=== PATIENT | female | born 1970 | race African-American/Black ===

== ENCOUNTER 2017-06-20 00:14 | Inpatient (IN) | payer BC ==
[2017-06-20] MEDS ORDERED: NS 0.9% 1000 ML* 1,000 ML IV ONE (00:41)
[2017-06-20] MEDS ORDERED: Ondansetron INJ* 2 MG/ML VIAL IV ONE (00:41)
[2017-06-20] MEDS ORDERED: Ketorolac INJ* 30 MG/ML 1 ML VIAL IV PUSH ONE (00:42)
[2017-06-20 01:45] LABS: ABS Basophils 0.1 10^3/ul (0-0.2); ABS Eosinophils 0.1 10^3/ul (0-0.6); ABS Lymphocytes 2.6 10^3/ul (1.0-4.8); ABS Monocytes 1.5 10^3/ul (0-0.8); ABS Neutrophils 4.3 10^3/ul (1.5-7.7); ABS Nucleated RBC 0 10^3/ul; Eosinophil % 1.7 % (0-6); Hematocrit 42 % (35-47); Hemoglobin 14.1 g/dl (12.0-16.0); Lymphocyte % 30.3 % (25-47); Mean Corpuscular HGB Conc 34 g/dl (31-36); Mean Corpuscular Hemoglobin 29 pg (27-31); Mean Corpuscular Volume 86 fL (80-97); Mean Platelet Volume 8 um3 (7.4-10.4); Nucleated Red Blood Cells % 0; Platelet Count 209 10^3/ul (150-450); Red Blood Count 4.88 10^6/ul (4.0-5.4); Red Cell Distribution Width 17 % (10.5-15); White Blood Count 8.6 10^3/ul (3.5-10.8)
[2017-06-20 01:59] LABS: EGFR Non-African American 50.9 (>60)
[2017-06-20 02:51] LABS: Urine Appearance Cloudy; Urine Blood Negative (Negative); Urine Color Amber; Urine Ketones Negative (Negative); Urine Protein Negative (Negative); Urine Specific Gravity 1.019 (1.010-1.030); Urine Urobilinogen Positive (Negative)
[2017-06-20] MEDS ORDERED: Acetaminophen TAB* 325 MG PO PRN (03:49)
[2017-06-20] MEDS ORDERED: Al Hydrox/Mg Hydrox/Simet LIQ* 30 ML UDC PO PRN (03:49)
[2017-06-20] MEDS ORDERED: HYDROcodone/ACETAMIN 5-325 MG* 1 TAB PO PRN (03:52)
--- NOTE | 2017-06-20 05:06 | ED ---
Lary Branch Julia, scribed for Oswaldo Allen MD on 06/20/17 at 0313 . Abdominal Pain/Female - HPI Summary HPI Summary: This patient is a 47 year old F presenting to [facility] with a chief complaint of constant sharp R sided abdominal pain for the past 3 days. Patient reports R flank pain vomiting, mild nausea, and dark urine. Patient denies fever dysuria, CP, SOB, or trauma.The patient rates the pain 9/10 in severity. Symptoms aggravated by lying on right side. LNMP was 1 month ago. - History of Current Complaint Chief Complaint: EDFlankPain Stated Complaint: FLANK PAIN Time Seen by Provider: 06/20/17 01:26 Hx Obtained From: Patient Onset/Duration: Lasting Days Timing: Constant Pain Intensity: 8 Pain Scale Used: 0-10 Numeric Location: Discrete At: RUQ, Discrete At: RLQ, Flank - R Character: Sharp Aggravating Factor(s): Other: - lying on R side Associated Signs and Symptoms: Positive: Other: - R flank pain vomiting, mild nausea, and dark urine Allergies/Adverse Reactions: Allergies Allergy/AdvReac Type Severity Reaction Status Date / Time Gabapentin [From Neurontin] Allergy Hives Verified 06/20/17 00:21 PMH/Surg Hx/FS Hx/Imm Hx Endocrine/Hematology History: Denies: Hx Diabetes Cardiovascular History: Reports: Hx Hypertension Denies: Hx Congestive Heart Failure GI History: Denies: Other GI Disorders History: Denies: Hx Renal Disease, Other Problems/Disorders Musculoskeletal History: Reports: Other Musculoskeletal History - NECK SURGERY Sensory History: Reports: Hx Contacts or Glasses Opthamlomology History: Reports: Hx Contacts or Glasses - Surgical History Surgery Procedure, Year, and Place: NECK SURGERY 2002. [facility] I&D 2013, [facility] - Immunization History Date of Tetanus Vaccine: Unk Date of Influenza Vaccine: Fall 2011 Infectious Disease History: No Infectious Disease History: Denies: Traveled Outside the [place] in Last 30 Days - Family History Known Family History: Negative: Cardiac Disease, Diabetes - Social History Alcohol Use: Occasionally Hx Substance Use: No Substance Use Type: Reports: None Hx Tobacco Use: Yes Smoking Status (MU): Current Some Day Smoker Type: Cigarettes Review of Systems Negative: Fever Negative: Chest Pain Negative: Shortness Of Breath Positive: Abdominal Pain, Vomiting, Nausea Positive: other - dark urine. Negative: dysuria All Other Systems Reviewed And Are Negative: Yes Physical Exam - Summary Physical Exam Summary: Appearance: Well appearing, no pain distress Skin: warm, dry, reflects adequate perfusion Head/face: normal Eyes: EOMI, SALAS ENT: normal Neck: supple, non-tender Respiratory: CTA, breath sounds present Cardiovascular: RRR, pulses symmetrical Abdomen: pain with deep palpation in RUQ mild to moderate tenderness to RUQ, no CVA tenderness, negative murphys sign Bowel: present Musculoskeletal: normal, strength/ROM intact Neuro: normal, sensory motor intact, A&Ox3 Triage Information Reviewed: Yes Vital Signs On Initial Exam: Initial Vitals Temp Pulse Resp BP Pulse Ox 97.4 F 85 16 140/77 100 06/20/17 00:18 06/20/17 00:18 06/20/17 00:18 06/20/17 00:18 06/20/17 00:18 Vital Signs Reviewed: Yes Diagnostics - Vital Signs Vital Signs Temp Pulse Resp BP Pulse Ox 06/20/17 00:18 97.4 F 85 16 140/77 100 - Laboratory Lab Results: Lab Results 06/20/17 06/20/17 06/20/17 Range/Units 01:21 01:21 01:21 WBC 8.6 (3.5-10.8) 10^3/ul RBC 4.88 (4.0-5.4) 10^6/ul Hgb 14.1 (12.0-16.0) g/dl Hct 42 (35-47) % MCV 86 (80-97) fL MCH 29 (27-31) pg MCHC 34 (31-36) g/dl RDW 17 H (10.5-15) % Plt Count 209 (150-450) 10^3/ul MPV 8 (7.4-10.4) um3 Neut % (Auto) 49.3 (38-83) % Lymph % (Auto) 30.3 (25-47) % [place] % (Auto) 17.3 H (1-9) % Eos % (Auto) 1.7 (0-6) % Baso % (Auto) 1.4 (0-2) % Absolute Neuts (auto) 4.3 (1.5-7.7) 10^3/ul Absolute Lymphs (auto) 2.6 (1.0-4.8) 10^3/ul Absolute Monos (auto) 1.5 H (0-0.8) 10^3/ul Absolute Eos (auto) 0.1 (0-0.6) 10^3/ul Absolute Basos (auto) 0.1 (0-0.2) 10^3/ul Absolute Nucleated RBC 0 10^3/ul Nucleated RBC % 0 Sodium 139 (133-145) mmol/L Potassium 3.2 L (3.5-5.0) mmol/L Chloride 101 (101-111) mmol/L Carbon Dioxide 31 (22-32) mmol/L Anion Gap 7 (2-11) mmol/L BUN 15 (6-24) mg/dL Creatinine 1.14 H (0.51-0.95) mg/dL Est GFR ( Amer) 65.4 (>60) Est GFR (Non-Af Amer) 50.9 (>60) BUN/Creatinine Ratio 13.2 (8-20) Glucose 72 (70-100) mg/dL Lactic Acid 2.2 H* (0.5-2.0) mmol/L Calcium 9.6 (8.6-10.3) mg/dL Total Bilirubin 2.50 H (0.2-1.0) mg/dL AST 513 H (13-39) U/L ALT Pending Alkaline Phosphatase 121 H (34-104) U/L Total Protein 6.8 (6.4-8.9) g/dL Albumin 3.8 (3.2-5.2) g/dL Globulin 3.0 (2-4) g/dL Albumin/Globulin Ratio 1.3 (1-3) Lipase 57 (11.0-82.0) U/L Beta HCG, Quant 1.84 mIU/mL Urine Color Urine Appearance Urine pH (5-9) Ur Specific Ava (1.010-1.030) Urine Protein (Negative) Urine Ketones (Negative) Urine Blood (Negative) Urine Nitrate (Negative) Urine Bilirubin (Negative) Urine Urobilinogen (Negative) Ur Leukocyte Esterase (Negative) Urine Glucose (Negative) 06/20/17 Range/Units 02:00 WBC (3.5-10.8) 10^3/ul RBC (4.0-5.4) 10^6/ul Hgb (12.0-16.0) g/dl Hct (35-47) % MCV (80-97) fL MCH (27-31) pg MCHC (31-36) g/dl RDW (10.5-15) % Plt Count (150-450) 10^3/ul MPV (7.4-10.4) um3 Neut % (Auto) (38-83) % Lymph % (Auto) (25-47) % [place] % (Auto) (1-9) % Eos % (Auto) (0-6) % Baso % (Auto) (0-2) % Absolute Neuts (auto) (1.5-7.7) 10^3/ul Absolute Lymphs (auto) (1.0-4.8) 10^3/ul Absolute Monos (auto) (0-0.8) 10^3/ul Absolute Eos (auto) (0-0.6) 10^3/ul Absolute Basos (auto) (0-0.2) 10^3/ul Absolute Nucleated RBC 10^3/ul Nucleated RBC % Sodium (133-145) mmol/L Potassium (3.5-5.0) mmol/L Chloride (101-111) mmol/L Carbon Dioxide (22-32) mmol/L Anion Gap (2-11) mmol/L BUN (6-24) mg/dL Creatinine (0.51-0.95) mg/dL Est GFR ( Amer) (>60) Est GFR (Non-Af Amer) (>60) BUN/Creatinine Ratio (8-20) Glucose (70-100) mg/dL Lactic Acid (0.5-2.0) mmol/L Calcium (8.6-10.3) mg/dL Total Bilirubin (0.2-1.0) mg/dL AST (13-39) U/L ALT Alkaline Phosphatase (34-104) U/L Total Protein (6.4-8.9) g/dL Albumin (3.2-5.2) g/dL Globulin (2-4) g/dL Albumin/Globulin Ratio (1-3) Lipase (11.0-82.0) U/L Beta HCG, Quant mIU/mL Urine Color Shayy Urine Appearance Cloudy Urine pH 7.0 (5-9) Ur Specific Ava 1.019 (1.010-1.030) Urine Protein Negative (Negative) Urine Ketones Negative (Negative) Urine Blood Negative (Negative) Urine Nitrate Negative (Negative) Urine Bilirubin Negative (Negative) Urine Urobilinogen Positive H (Negative) Ur Leukocyte Esterase Negative (Negative) Urine Glucose Negative (Negative) Result Diagrams: 06/20/17 01:21 06/20/17 01:21 Lab Statement: Any lab studies that have been ordered have been reviewed, and results considered in the medical decision making process. - CT A/P CT Interpretation Completed By: Radiologist - No definite evidence of acute pathology. Moderate amount of diffuse solid stool. ED Physician has reviewed this report. Re-Evaluation - Re-Evaluation 1 Re-Evaluation Time: 03:11 Change: Improved - pain improved Abdominal Pain Fem Course/Dx - Course Course Of Treatment: Pt presents with constant sharp R sided abdominal pain for the past 3 days. Patient reports R flank pain vomiting, mild nausea, and dark urine. Labs reveal lactic acid of 2.2. UA is present of Urobilinogen. Pt given zofran, potassium, Senna, Toradol, acetaminophen, Heparin, morphine, and IV fluids. Pt will be admitted to Dr. Mcneill, hospitalist for elevated LFTs, possible choledocolithiasis. No hx of Hep B/C. US not available for GB currently , obtain in am. - Diagnoses Provider Diagnoses: Acute hepatitis, RUQ pain, Choledocholithiasis - Provider Notifications Instructed by Provider To: Other - At 3:12 Dr. Mcneill, hospitalist, agrees to admission and will come visit pt. Discharge - Discharge Plan Condition: Good Disposition: ADMITTED TO [facility] documentation as recorded by the Lary roberto Julia accurately reflects the service I personally performed and the decisions made by , Oswaldo Allen MD.
[2017-06-20] MEDS: Morphine INJ* 2 MG/ML 1 ML SYRINGE (TWO MG - NEW SYRINGE VERSION) IV PRN ×4 (05:44→12:21)
[2017-06-20] MEDS: Heparin VIAL(*) 5000 UNITS/ML VIAL (FIVE THOUSAND) SUBCUT SCH ×3 (05:45→22:42)
[2017-06-20] MEDS: Ondansetron INJ* 2 MG/ML VIAL IV PRN ×4 (05:52→21:32)
[2017-06-20] MEDS: NS 0.9% w/ 20 Meq KCL 1000 ML* 1,000 ML IV SCH ×2 (05:52→15:34)
--- NOTE | 2017-06-20 07:48 | RAD ---
CLINICAL HISTORY: Right flank pain COMPARISON: November 28, 2015 TECHNIQUE: Multiple contiguous axial CT scans were obtained of the abdomen and pelvis, without intravenous contrast enhancement. Coronal and sagittal multiplanar reformations are submitted for review. Oral contrast was not administered. FINDINGS: The study is limited by the lack of intravenous contrast. This limits evaluation of the solid organs and vasculature. LUNG BASES: The lung bases are clear. LIVER: The liver is normal in shape, size, contour, and attenuation. BILE DUCTS: There is no intrahepatic or extrahepatic biliary dilatation. GALLBLADDER: The gallbladder is collapsed and is not well evaluated. PANCREAS: The pancreas is normal, without mass or ductal dilatation. SPLEEN: Normal in size and appearance. UPPER GI TRACT: Evaluation of the gastrointestinal tract is limited by incomplete gastric distention. The upper GI tract is unremarkable. SMALL BOWEL AND MESENTERY: The small bowel is normal in contour, course, and caliber. There is no obstruction or dilatation. COLON: The colon is normal in contour, course, caliber. There is no pericolonic inflammatory change. There is a tubular, vermiform, hollow viscus that is blind ending, and originates from the cecum, consistent with a normal appendix. There is no periappendiceal inflammatory change. This is best seen on axial images 108 through 119. ADRENALS: Normal bilaterally. KIDNEYS: The kidneys are normal in shape, size, contour, and axis. There is no hydronephrosis or nephrolithiasis. BLADDER: The bladder is collapsed and is not well evaluated. PELVIC ORGANS: The uterus and adnexa are grossly normal for technique. AORTA: The aorta is normal. IVC: Unremarkable LYMPH NODES: There is no lymphadenopathy by size criteria. ABDOMINAL WALL: There is diastasis recti.. BONES AND SOFT TISSUES: Unremarkable OTHER: None IMPRESSION: NO ACUTE NONCONTRAST CT PATHOLOGY OF THE VISUALIZED ABDOMEN OR PELVIS.
[2017-06-20 08:08] LABS: ABS Basophils 0.1 10^3/ul (0-0.2); ABS Eosinophils 0.2 10^3/ul (0-0.6); ABS Monocytes 1.2 10^3/ul (0-0.8); ABS Neutrophils 4.3 10^3/ul (1.5-7.7); ABS Nucleated RBC 0 10^3/ul; Eosinophil % 2.1 % (0-6); Hematocrit 38 % (35-47); Hemoglobin 12.7 g/dl (12.0-16.0); Lymphocyte % 33.9 % (25-47); Mean Corpuscular HGB Conc 33 g/dl (31-36); Mean Corpuscular Hemoglobin 28 pg (27-31); Mean Corpuscular Volume 85 fL (80-97); Mean Platelet Volume 9 um3 (7.4-10.4); Nucleated Red Blood Cells % 0.2; Platelet Count 184 10^3/ul (150-450); Red Blood Count 4.48 10^6/ul (4.0-5.4); Red Cell Distribution Width 17 % (10.5-15); White Blood Count 8.8 10^3/ul (3.5-10.8)
[2017-06-20 08:21] LABS: EGFR Non-African American 56.6 (>60)
--- NOTE | 2017-06-20 09:27 | RAD ---
INDICATION: Right-sided abdominal pain evaluate for gallbladder disease. COMPARISON: Comparison is made with a prior CT of the abdomen and pelvis of the same day. TECHNIQUE: Multiple real-time images of the right upper quadrant were obtained. FINDINGS: The gallbladder appear normal. No gallbladder wall thickening or pericholecystic fluid is present. No intra or extrahepatic ductal distention is present. The common bile duct measured 0.4 cm in diameter. The liver is normal in size without significant focal abnormality. The pancreas is partially obscured by overlying bowel gas. No pancreatic ductal distention is present. The right kidney is normal in size without evidence for hydronephrosis. IMPRESSION: NEGATIVE EXAM.
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
[2017-06-20] MEDS: Citalopram TAB* 20 MG PO SCH (10:38)
[2017-06-20] MEDS ORDERED: Ketorolac INJ* 30 MG/ML 1 ML VIAL ONE (16:45)
--- NOTE | 2017-06-20 17:11 | PN ---
Subjective Date of Service: 06/20/17 Interval History: Patient complains of continued pain on her right side and radiating to her flank. Patient states she has continued mild intermittent nausea accompanying the pain. Patient has not had any urine since 0500 this AM. Patient denies the need to urinate. Patient has not had a bowel movement today and denies the need. Patient denies any changes in her medications or food. Patient denies any recent travel. Patient denies taking tylenol in months. Patient states that this feels nothing like her previous psoas abscess. Patient denies ever having pain like this before. Patient denies F/C, CP, SOB, kidney stones, STONE, Dizziness , or other pain. Family History: Unchanged from Admission Social History: Unchanged from Admission Past Medical History: Unchanged from Admission Objective Active Medications: Al Hydrox/Mg Hydrox/Simethicone (Maalox Plus*) 30 ml PO Q6H PRN PRN Reason: INDIGESTION Citalopram Hydrobromide (Celexa Tab*) 20 mg PO DAILY [facility] Last Admin: 06/20/17 10:38 Dose: 20 mg Docusate Sodium (Colace Cap*) 100 mg PO BID PRN PRN Reason: CONSTIPATION Heparin Sodium (Porcine) (Heparin Vial(*)) 5,000 units SUBCUT Q8HR [facility] Last Admin: 06/20/17 13:21 Dose: 5,000 units Potassium Chloride/Sodium Chloride (Ns 0.9% W/ 20 Meq Kcl 1000 Ml*) 1,000 mls @ 125 mls/hr IV PER RATE [facility] Last Admin: 06/20/17 15:34 Dose: 125 mls/hr Lactated Ringer's (Lactated Ringers 1000 Ml Bag*) 1,000 mls @ 1,000 mls/hr IV .BOLUS [facility] Last Admin: 06/20/17 16:51 Dose: 1,000 mls/hr Ketorolac Tromethamine (Toradol Inj*) 30 mg IV PUSH Q6H PRN PRN Reason: PAIN Morphine Sulfate (Morphine Inj (Syringe)*) 4 mg IV Q4H PRN PRN Reason: PAIN - MILD Ondansetron HCl (Zofran Inj*) 4 mg IV Q4H PRN PRN Reason: NAUSEA/VOMITING Last Admin: 06/20/17 13:21 Dose: 4 mg Senna (Senokot Tab*) 1 tab PO BID PRN PRN Reason: CONSTIPATION Vital Signs - 8 hr 06/20/17 06/20/17 06/20/17 09:20 10:45 11:31 Temperature 97.8 F Pulse Rate 87 Respiratory 20 20 12 Rate Blood Pressure 101/62 (mmHg) O2 Sat by Pulse 98 Oximetry 06/20/17 06/20/17 06/20/17 12:21 15:18 15:29 Temperature 97.2 F Pulse Rate 90 Respiratory 20 16 18 Rate Blood Pressure 138/64 (mmHg) O2 Sat by Pulse 97 Oximetry Oxygen Devices in Use Now: None Appearance: Patient is a 47yo female female who appears stated age and is sitting in the bed in [facility]. Eyes: No Scleral Icterus, PERRLA Ears/Nose/Mouth/Throat: NL Teeth, Lips, Gums, Clear Oropharnyx, Mucous Membranes Moist Neck: NL Appearance and Movements; NL JVP, Trachea Midline Respiratory: Symmetrical Chest Expansion and Respiratory Effort, Clear to Auscultation Cardiovascular: NL Sounds; No Murmurs; No JVD, RRR, No Edema Abdominal: No Hepatosplenomegaly, - - Tenderness to palpation over RUQ,RLQ and flank. Negative Esquivel's Sign. BS present and normoactive in all 4 quadrants. No CVA tenderness Lymphatic: No Cervical Adenopathy Extremities: No Edema, No Clubbing, Cyanosis Skin: No Rash or Ulcers, No Nodules or Sclerosis Neurological: Alert and Oriented x 3, NL Sensation, NL Muscle Strength and Tone , - - CN II-XII intact Result Diagrams: 06/20/17 07:26 06/20/17 07:26 Additional Lab and Data: Lab Results Assess/Plan/Problems-Billing Assessment: Patient is a 47yo female with a PMH significant for HTN, Depression, and psoas abscess who presents with abdominal pain, N/V and several episodes of diarrhea who is still in significant pain despite negative imaging. - Patient Problems (1) Transaminitis Current Visit: Yes Status: Acute Code(s): R74.0 - NONSPEC ELEV OF LEVELS OF TRANSAMNS & LACTIC ACID DEHYDRGNSE SNOMED Code(s): 563434689 Comment: Patient had signficantly elevated transaminases as well as bilirubin and alkaline phosphotase. Appreciate GI input. No sign of stone on CT or US. Will order MRCP and tests for autoimmune hepatitis. Will trend LFTs. No signs of cholangitis, no indication for antibiotics. (2) Abdominal pain Current Visit: Yes Status: Acute Code(s): R10.9 - UNSPECIFIED ABDOMINAL PAIN SNOMED Code(s): 55655890 Comment: Abdominal pain persisting despite no signs of stone on US. Toradol and Morphine available PRN. (3) Psoas abscess Current Visit: Yes Status: Acute Code(s): K68.12 - PSOAS MUSCLE ABSCESS SNOMED Code(s): 212838857 Comment: History of psoas abscess. No provoking factor at that time. This is not similar in presentation per patient. (4) Hypertension Current Visit: Yes Status: Acute Code(s): I10 - ESSENTIAL (PRIMARY) HYPERTENSION SNOMED Code(s): 30183222 Comment: Normotensive. Hold HCTZ and continue fluids as patient has been dehydrated. (5) Depression Current Visit: Yes Status: Acute Code(s): F32.9 - MAJOR DEPRESSIVE DISORDER , SINGLE EPISODE, UNSPECIFIED SNOMED Code(s): 73946639 Comment: Continue citalopram. (6) Oliguria Current Visit: Yes Status: Acute Code(s): R34 - ANURIA AND OLIGURIA SNOMED Code(s): 15370459 Comment: Patient has not urinated since 0500 today. Will order bolus and continue fluids. Bladder scan shows only 75ml. Will order renal U/S to assess for hydronephrosis or kidney stones. (7) DVT prophylaxis Current Visit: Yes Status: Acute Code(s): CGE2483 - SNOMED Code(s): 338321633 Comment: Heparin SubQ. (8) Full code status Current Visit: Yes Status: Acute Code(s): Z78.9 - OTHER SPECIFIED HEALTH STATUS SNOMED Code(s): 023082467 Status and Disposition: Patient is admitted inpatient. Will discharge when medically able.
[2017-06-20] MEDS: Morphine INJ* 4 MG/ML 1 ML CARPUJECT IV PRN (18:47)
--- NOTE | 2017-06-20 18:48 | RAD ---
Indication: Oliguria. Real-time sonography of the kidneys and urinary bladder was performed. The right kidney measures 9.2 x 4.9 x 5.1 cm. Left kidney measures 9.8 x 5.5 x 4.3 cm. No hydronephrosis is noted. The urinary bladder demonstrates no significant post void residual. Postvoid residual is 38 mL. Bladder wall measures 1.9 mm. No bladder wall masses are noted. Bilateral ureteral jets are present. IMPRESSION: No hydronephrosis is noted. Minimal post void residual.
--- NOTE | 2017-06-20 20:50 | RAD ---
Indication: Evaluate for choledocholithiasis. Axial T2, coronal T2, 3-D MRCP images were obtained. The common bile duct, common hepatic duct shows no evidence of filling defect to suggest calculi. No intrahepatic duct dilatation is noted. The pancreatic duct is otherwise unremarkable. Left and right hepatic ducts are unremarkable. The liver is otherwise unremarkable. Motion artifact does degrades images. IMPRESSION: No evidence of filling defect is noted within the common bile duct or common hepatic duct. No intrahepatic ductal dilatation is noted.
[2017-06-20] MEDS ORDERED: Morphine INJ* 4 MG/ML 1 ML CARPUJECT IV ONE (21:15)
[2017-06-20] MEDS: Ketorolac INJ* 30 MG/ML 1 ML VIAL IV PUSH PRN (21:24)
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
[2017-06-21] MEDS ORDERED: NS 0.9% 500 ML* 500 ML IV ONE (01:19)
[2017-06-21] MEDS ORDERED: oxyCODONE TAB* 5 MG TAB PO ONE (01:20)
[2017-06-21] MEDS ORDERED: oxyCODONE TAB* 5 MG TAB ONE (01:24)
[2017-06-21] MEDS: NS 0.9% w/ 20 Meq KCL 1000 ML* 1,000 ML IV SCH ×3 (01:28→21:38)
[2017-06-21] MEDS: Ketorolac INJ* 30 MG/ML 1 ML VIAL IV PUSH PRN ×3 (04:26→16:36)
[2017-06-21] MEDS: Heparin VIAL(*) 5000 UNITS/ML VIAL (FIVE THOUSAND) SUBCUT SCH ×3 (06:15→22:46)
[2017-06-21 06:16] LABS: ABS Basophils 0.1 10^3/ul (0-0.2); ABS Eosinophils 0.3 10^3/ul (0-0.6); ABS Lymphocytes 2.4 10^3/ul (1.0-4.8); ABS Monocytes 0.8 10^3/ul (0-0.8); ABS Neutrophils 2.7 10^3/ul (1.5-7.7); ABS Nucleated RBC 0 10^3/ul; Eosinophil % 4.9 % (0-6); Hematocrit 36 % (35-47); Hemoglobin 11.8 g/dl (12.0-16.0); Lymphocyte % 38.7 % (25-47); Mean Corpuscular HGB Conc 33 g/dl (31-36); Mean Corpuscular Hemoglobin 29 pg (27-31); Mean Corpuscular Volume 86 fL (80-97); Mean Platelet Volume 8 um3 (7.4-10.4); Nucleated Red Blood Cells % 0.1; Platelet Count 160 10^3/ul (150-450); Red Blood Count 4.15 10^6/ul (4.0-5.4); Red Cell Distribution Width 17 % (10.5-15); White Blood Count 6.2 10^3/ul (3.5-10.8)
[2017-06-21 06:32] LABS: INR 1.25 (0.77-1.02)
[2017-06-21 06:47] LABS: EGFR Non-African American 66.8 (>60)
[2017-06-21] MEDS ORDERED: Magnesium Sulfate 2 GM IV* 2 GM/50 ML BAG IVPB ONE (06:53)
[2017-06-21] MEDS: Morphine INJ* 4 MG/ML 1 ML CARPUJECT IV PRN ×3 (08:30→21:51)
[2017-06-21] MEDS: Ondansetron INJ* 2 MG/ML VIAL IV PRN ×3 (08:30→21:51)
--- NOTE | 2017-06-21 12:33 | RAD ---
Indication: Elevated liver enzymes. Clinical concern for potential Budd-Chiari syndrome. Comparison: June 20, 2017 MR cholangiogram, RIGHT upper quadrant ultrasound, CT abdomen and pelvis. Technique: Ultrasound with Doppler of the portal vein, hepatic artery, hepatic veins, splenic vein. Report: Patent portal and hepatic veins with respective appropriate direction blood flow and waveforms. Patent hepatic artery with appropriate arterial waveform. Patent splenic vein with appropriate direction of flow and waveforms. IMPRESSION: No evidence for hepatic vein occlusion. Negative exam.
[2017-06-21] MEDS: Citalopram TAB* 20 MG PO SCH (14:37)
--- NOTE | 2017-06-21 15:02 | PN ---
Subjective Date of Service: 06/21/17 Interval History: Patient complains of continued pain, Nausea, and Vomiting. Patient states this is slightly improved from yesterday. Patient denies having a BM today and is having continued small amounts of dark urine without dysuria. Patient denies F/C , CP, SOB, Dizziness, Changes in vision, or other pain. Family History: Unchanged from Admission Social History: Unchanged from Admission Past Medical History: Unchanged from Admission Objective Active Medications: Al Hydrox/Mg Hydrox/Simethicone (Maalox Plus*) 30 ml PO Q6H PRN PRN Reason: INDIGESTION Citalopram Hydrobromide (Celexa Tab*) 20 mg PO DAILY [facility] Last Admin: 06/21/17 14:37 Dose: 20 mg Docusate Sodium (Colace Cap*) 100 mg PO BID PRN PRN Reason: CONSTIPATION Heparin Sodium (Porcine) (Heparin Vial(*)) 5,000 units SUBCUT Q8HR [facility] Last Admin: 06/21/17 14:34 Dose: 5,000 units Potassium Chloride/Sodium Chloride (Ns 0.9% W/ 20 Meq Kcl 1000 Ml*) 1,000 mls @ 125 mls/hr IV PER RATE [facility] Last Admin: 06/21/17 12:05 Dose: 125 mls/hr Lactated Ringer's (Lactated Ringers 1000 Ml Bag*) 1,000 mls @ 1,000 mls/hr IV .BOLUS [facility] Last Admin: 06/20/17 16:51 Dose: 1,000 mls/hr Ketorolac Tromethamine (Toradol Inj*) 30 mg IV PUSH Q6H PRN PRN Reason: PAIN Last Admin: 06/21/17 10:29 Dose: 30 mg Morphine Sulfate (Morphine Inj (Syringe)*) 4 mg IV Q4H PRN PRN Reason: PAIN - MILD Last Admin: 06/21/17 14:32 Dose: 4 mg Ondansetron HCl (Zofran Inj*) 4 mg IV Q4H PRN PRN Reason: NAUSEA/VOMITING Last Admin: 06/21/17 14:30 Dose: 4 mg Senna (Senokot Tab*) 1 tab PO BID PRN PRN Reason: CONSTIPATION Vital Signs - 8 hr 06/21/17 06/21/17 06/21/17 07:24 08:00 08:30 Temperature 98.8 F Pulse Rate 86 Respiratory 16 16 16 Rate Blood Pressure 104/64 (mmHg) O2 Sat by Pulse 96 Oximetry 06/21/17 06/21/17 06/21/17 09:55 11:06 14:32 Temperature 97.5 F Pulse Rate 81 Respiratory 16 16 16 Rate Blood Pressure 98/60 (mmHg) O2 Sat by Pulse 95 Oximetry Oxygen Devices in Use Now: None Appearance: Patient is a 47yo female who appears stated age and is sitting in the bed in moderate distress from abdominal pain. Eyes: No Scleral Icterus, PERRLA Ears/Nose/Mouth/Throat: NL Teeth, Lips, Gums, Clear Oropharnyx, Mucous Membranes Moist, - - Parotid gland swelling without tenderness. Neck: NL Appearance and Movements; NL JVP, Trachea Midline Respiratory: Symmetrical Chest Expansion and Respiratory Effort, Clear to Auscultation Cardiovascular: NL Sounds; No Murmurs; No JVD, RRR, No Edema Abdominal: No Hepatosplenomegaly, - - Normoactive bowel sounds present in all 4 quadrants. Tenderness to palpation over right flank and RUQ and RLQ. No guarding or rigidity. Lymphatic: No Cervical Adenopathy Extremities: No Edema, No Clubbing, Cyanosis Skin: No Rash or Ulcers, No Nodules or Sclerosis Neurological: Alert and Oriented x 3, NL Sensation, NL Muscle Strength and Tone Result Diagrams: 06/21/17 05:53 06/21/17 05:53 Additional Lab and Data: Lab Results Assess/Plan/Problems-Billing Assessment: Patient is a 47yo female with a PMH significant for HTN, Depression, and psoas abscess who presents with abdominal pain, N/V and several episodes of diarrhea who is still in significant pain despite negative imaging. - Patient Problems (1) Transaminitis Current Visit: Yes Status: Acute Code(s): R74.0 - NONSPEC ELEV OF LEVELS OF TRANSAMNS & LACTIC ACID DEHYDRGNSE SNOMED Code(s): 587086246 Comment: Patient had signficantly elevated transaminases as well as bilirubin and alkaline phosphotase. Trending down except bilirubin. Appreciate GI input. No sign of stone on CT or US. MRCP unremarkable. Tests for autoimmune hepatitis Pending. Bilirubin increasing. Both indirect and direct elevated, direct moreso. LDH and haptoglobin ordered.. No signs of cholangitis, no indication for antibiotics. (2) Abdominal pain Current Visit: Yes Status: Acute Code(s): R10.9 - UNSPECIFIED ABDOMINAL PAIN SNOMED Code(s): 13406892 Comment: Abdominal pain persisting despite no signs of stone on US. Toradol and Morphine available PRN. Decreasing slightly. (3) Psoas abscess Current Visit: Yes Status: Acute Code(s): K68.12 - PSOAS MUSCLE ABSCESS SNOMED Code(s): 479810413 Comment: History of psoas abscess. No provoking factor at that time. This is not similar in presentation per patient. (4) Hypertension Current Visit: Yes Status: Acute Code(s): I10 - ESSENTIAL (PRIMARY) HYPERTENSION SNOMED Code(s): 70544298 Comment: Borderline hypotensive. Hold HCTZ and continue fluids as patient has been dehydrated. (5) Depression Current Visit: Yes Status: Acute Code(s): F32.9 - MAJOR DEPRESSIVE DISORDER , SINGLE EPISODE, UNSPECIFIED SNOMED Code(s): 73814506 Comment: Continue citalopram. (6) Oliguria Current Visit: Yes Status: Acute Code(s): R34 - ANURIA AND OLIGURIA SNOMED Code(s): 45900455 Comment: Continued low UOP. Cret now WNL. Continue fluids. No signs of cardiac overload. Will order FeNa. (7) Parotid gland enlargement Current Visit: Yes Status: Acute Code(s): K11.1 - HYPERTROPHY OF SALIVARY GLAND SNOMED Code(s): 56504841 Comment: Patient states that her parotid glands are intermittently swollen but that this is the worst they have been. Patient does not complain of chronic dry mouth or dry eyes. Patient has documented immunity to mumps. (8) DVT prophylaxis Current Visit: Yes Status: Acute Code(s): SUX3922 - SNOMED Code(s): 549312327 Comment: Heparin SubQ. (9) Full code status Current Visit: Yes Status: Acute Code(s): Z78.9 - OTHER SPECIFIED HEALTH STATUS SNOMED Code(s): 679128813 Status and Disposition: Patient is admitted inpatient. Will discharge when medically able.
[2017-06-21] MEDS ORDERED: NS 0.9% 1000 ML* 1,000 ML IV ONE (15:08)
--- NOTE | 2017-06-21 15:52 | RAD ---
HISTORY: Abdominal pain COMPARISONS: CT dated June 20, 2017 VIEWS: Frontal supine and upright views of the abdomen. FINDINGS: BOWEL: There is a nonobstructive bowel gas pattern. There is a large amount of stool within the colon. CALCULI: There are no abnormal calculi. BONES AND SOFT TISSUES: Degenerative changes are noted at L5-S1. OTHER FINDINGS: The lung bases are clear. There is no subphrenic gas. IMPRESSION: NONOBSTRUCTIVE BOWEL GAS PATTERN. LARGE AMOUNT OF STOOL WITHIN THE COLON.
--- NOTE | 2017-06-21 20:36 | PN ---
Progress Note - Progress Note Date of Service: 06/21/17 - Gastroenterology Note: Patient seen and examined. Able to tolerate small amounts of liquids. Pain only slightly better. No fevers. +Chills. Some nausea. No emesis. Urine is still dark brown. Continued right flank pain. Vital Signs: Temp Pulse Resp BP Pulse Ox 98.1 F 82 16 114/70 98 06/21/17 19:21 06/21/17 19:21 06/21/17 19:33 06/21/17 19:21 06/21/17 19:21 GENERAL: NAD. Granddaughter at bedside. HEENT: MMM, Anicteric sclera B/L. B/L parotid gland swelling. CV: RRR. PULM: CTAB. ABDOMEN: Soft, less ttp throughout abdomen, decreased BS in all 4 quadrants, no r/g/r. EXTREMITIES: +B/L LE edema. Laboratory Last Values WBC 6.2 10^3/ul (3.5-10.8) 06/21/17 05:53 RBC 4.15 10^6/ul (4.0-5.4) 06/21/17 05:53 Hgb 11.8 g/dl (12.0-16.0) L 06/21/17 05:53 Hct 36 % (35-47) 06/21/17 05:53 MCV 86 fL (80-97) 06/21/17 05:53 MCH 29 pg (27-31) 06/21/17 05:53 MCHC 33 g/dl (31-36) 06/21/17 05:53 RDW 17 % (10.5-15) H 06/21/17 05:53 Plt Count 160 10^3/ul (150-450) 06/21/17 05:53 MPV 8 um3 (7.4-10.4) 06/21/17 05:53 Neut % (Auto) 42.9 % (38-83) 06/21/17 05:53 Lymph % (Auto) 38.7 % (25-47) 06/21/17 05:53 [place] % (Auto) 12.2 % (1-9) H 06/21/17 05:53 Eos % (Auto) 4.9 % (0-6) 06/21/17 05:53 Baso % (Auto) 1.3 % (0-2) 06/21/17 05:53 Absolute Neuts (auto) 2.7 10^3/ul (1.5-7.7) 06/21/17 05:53 Absolute Lymphs (auto) 2.4 10^3/ul (1.0-4.8) 06/21/17 05:53 Absolute Monos (auto) 0.8 10^3/ul (0-0.8) 06/21/17 05:53 Absolute Eos (auto) 0.3 10^3/ul (0-0.6) 06/21/17 05:53 Absolute Basos (auto) 0.1 10^3/ul (0-0.2) 06/21/17 05:53 Absolute Nucleated RBC 0 10^3/ul 06/21/17 05:53 Nucleated RBC % 0.1 06/21/17 05:53 INR (Anticoag Therapy) 1.25 (0.77-1.02) H 06/21/17 05:53 APTT 44.2 seconds (26.0-36.3) H 06/21/17 05:53 Sodium 138 mmol/L (133-145) 06/21/17 05:53 Potassium 3.9 mmol/L (3.5-5.0) 06/21/17 05:53 Chloride 108 mmol/L (101-111) 06/21/17 05:53 Carbon Dioxide 26 mmol/L (22-32) 06/21/17 05:53 Anion Gap 4 mmol/L (2-11) 06/21/17 05:53 BUN 11 mg/dL (6-24) 06/21/17 05:53 Creatinine 0.90 mg/dL (0.51-0.95) 06/21/17 05:53 Est GFR ( Amer) 85.9 (>60) 06/21/17 05:53 Est GFR (Non-Af Amer) 66.8 (>60) 06/21/17 05:53 BUN/Creatinine Ratio 12.2 (8-20) 06/21/17 05:53 Glucose 73 mg/dL (70-100) 06/21/17 05:53 Lactic Acid 2.2 mmol/L (0.5-2.0) H* 06/20/17 01:21 Calcium 7.7 mg/dL (8.6-10.3) L 06/21/17 05:53 Magnesium 1.7 mg/dL (1.9-2.7) L 06/21/17 05:53 Iron 258 ug/dL (50-212) H 06/21/17 05:53 TIBC 286 mcg/dL (250-450) 06/21/17 05:53 % Saturation 90 % (15-55) H 06/21/17 05:53 Unsat Iron Binding 28 ug/dL 06/21/17 05:53 Ferritin 191.2 ng/mL (11-307) 06/21/17 05:53 Total Bilirubin 3.60 mg/dL (0.2-1.0) H 06/21/17 05:53 Direct Bilirubin 2.30 mg/dL (0.03-0.18) H 06/21/17 05:53 Indirect Bilirubin 1.3 mg/dL (0.3-1.0) H 06/21/17 05:53 GGT 168 U/L (9-64.0) H 06/21/17 05:53 AST 401 U/L (13-39) H 06/21/17 05:53 ALT 630 U/L (7-52) H 06/21/17 05:53 Alkaline Phosphatase 72 U/L (34-104) 06/21/17 05:53 Lactate Dehydrogenase Cancelled 06/21/17 05:53 C-Reactive Protein 5.06 mg/L (< 5.00) H 06/21/17 05:53 Total Protein 4.9 g/dL (6.4-8.9) L 06/21/17 05:53 Albumin 2.7 g/dL (3.2-5.2) L 06/21/17 05:53 Globulin 2.2 g/dL (2-4) 06/21/17 05:53 Albumin/Globulin Ratio 1.2 (1-3) 06/21/17 05:53 Lipase 57 U/L (11.0-82.0) 06/20/17 01:21 Beta HCG, Quant 1.84 mIU/mL 06/20/17 01:21 Urine Color Shayy 06/20/17 02:00 Urine Appearance Cloudy 06/20/17 02:00 Urine pH 7.0 (5-9) 06/20/17 02:00 Ur Specific [place] 1.019 (1.010-1.030) 06/20/17 02:00 Urine Protein Negative (Negative) 06/20/17 02:00 Urine Ketones Negative (Negative) 06/20/17 02:00 Urine Blood Negative (Negative) 06/20/17 02:00 Urine Nitrate Negative (Negative) 06/20/17 02:00 Urine Bilirubin Negative (Negative) 06/20/17 02:00 Urine Urobilinogen Positive (Negative) H 06/20/17 02:00 Ur Leukocyte Esterase Negative (Negative) 06/20/17 02:00 Ur Random Creatinine 244.23 mg/dL 06/21/17 16:00 Ur Random Sodium 141 mmol/L 06/21/17 16:00 Urine Glucose Negative (Negative) 06/20/17 02:00 Hepatitis A IgM Ab Nonreactive (Nonreactive) 06/20/17 07:26 Hep Bs Antigen Nonreactive (Nonreactive) 06/20/17 07:26 Hep B Core IgM Ab Nonreactive (Nonreactive) 06/20/17 07:26 Hepatitis C Antibody Nonreactive (Nonreactive) 06/20/17 07:26 Monoscreen Negative (Negative) 06/21/17 05:53 HIV 1&2 Antibody Nonreactive (Nonreactive) 06/20/17 01:21 47 yo female with right flank pain and nausea/emesis noted to have elevated LFTs and ELTON. 1. Elevated LFTs - etiology unclear at this time. ~Not on medications that cause elevations. ~AST/ALT/ALP downtrending. T.bilirubin increasing. ~Direct bilirubin elevated > indirect bilirubin. +urobilinogen. ~Lipase normal. ~May be secondary to viral etiology. Today she has developed B/L parotid gland swelling. ~US with dopplers negative for Budd Chiari, gallstones, choledocholithiasis, CBD 0.4cm, pericholcystic fluid. CT and MRI/MRCP negative for biliary etiology. ~Hepatitis panel negative. HIV negative. ~GGT slightly elevated along with INR at 1.25. ~AI and genetic liver disease panel pending. ~ test negative. ~[place] negative. ~EBV pending. ~Iron slightly elevated but ferritin low. % saturation is slightly elevated. Consider HFE testing as outpatient. ~Celiac panel pending. ~May need a liver biopsy as outpatient if testing is negative and patient continues to have elevated LFTs. 2. Acute kidney injury ~Improved with IVFs. 3. Normocytic Anemia ~No GI bleeding. 4. Constipation ~Stool seen on Abdominal XRAY. ~Minimize narcotics. ~Correct electrolyte abnormalities. Was given Mag rider today. ~Dulcolax suppository today. 5. B/L Parotid swelling ~Work-up in progress per primary team. Will follow closely. Please call with any further questions or concerns. Michelle Bryant D.O.
[2017-06-21] MEDS: Bisacodyl SUPP* 10 MG SUPP PR PRN (22:47)
[2017-06-22] MEDS: Ketorolac INJ* 30 MG/ML 1 ML VIAL IV PUSH PRN ×3 (01:02→23:02)
[2017-06-22] MEDS: Morphine INJ* 4 MG/ML 1 ML CARPUJECT IV PRN ×4 (04:46→22:57)
[2017-06-22] MEDS: Ondansetron INJ* 2 MG/ML VIAL IV PRN ×4 (04:54→22:55)
[2017-06-22] MEDS: NS 0.9% w/ 20 Meq KCL 1000 ML* 1,000 ML IV SCH ×3 (05:27→23:41)
[2017-06-22] MEDS: Heparin VIAL(*) 5000 UNITS/ML VIAL (FIVE THOUSAND) SUBCUT SCH ×3 (05:30→23:04)
[2017-06-22 05:56] LABS: EGFR Non-African American 75.5 (>60)
[2017-06-22] MEDS: Citalopram TAB* 20 MG PO SCH (08:52)
[2017-06-22 11:07] LABS: ABS Basophils 0.1 10^3/ul (0-0.2); ABS Eosinophils 0.2 10^3/ul (0-0.6); ABS Lymphocytes 2.2 10^3/ul (1.0-4.8); ABS Neutrophils 3.8 10^3/ul (1.5-7.7); ABS Nucleated RBC 0 10^3/ul; Eosinophil % 2.9 % (0-6); Hematocrit 36 % (35-47); Lymphocyte % 30.7 % (25-47); Mean Corpuscular HGB Conc 33 g/dl (31-36); Mean Corpuscular Hemoglobin 29 pg (27-31); Mean Corpuscular Volume 86 fL (80-97); Mean Platelet Volume 10 um3 (7.4-10.4); Nucleated Red Blood Cells % 0.1; Platelet Count 152 10^3/ul (150-450); Red Blood Count 4.16 10^6/ul (4.0-5.4); Red Cell Distribution Width 17 % (10.5-15); White Blood Count 7.3 10^3/ul (3.5-10.8)
[2017-06-22] MEDS: Senna TAB PO PRN (14:02)
[2017-06-22] MEDS: Docusate CAP* 100 MG PO PRN (14:02)
[2017-06-22] MEDS: Bisacodyl SUPP* 10 MG SUPP PR PRN (14:55)
--- NOTE | 2017-06-22 17:28 | PN ---
Subjective Date of Service: 06/22/17 Interval History: Patient has decreased pain in abdomen. Now complains of muscle aches all over. Patient states this is worse with movement. Denies URI symptoms, SOB, Cough, or other flu-like symptoms. Patient denies difficulty swallowing or tenderness over her swollen parotid glands. Patient has continued nausea without vomiting. Patient has no contacts with anyone with a known mononucleosis syndrome, but states that "everyone at my work is sick." Patient denies F/C, CP, SOB, dysuria , weakness, hematochezia, or other pain. Family History: Unchanged from Admission Social History: Unchanged from Admission Past Medical History: Unchanged from Admission Objective Active Medications: Al Hydrox/Mg Hydrox/Simethicone (Maalox Plus*) 30 ml PO Q6H PRN PRN Reason: INDIGESTION Bisacodyl (Dulcolax Supp*) 10 mg SC DAILY PRN PRN Reason: CONSTIPATION Last Admin: 06/22/17 14:55 Dose: 10 mg Citalopram Hydrobromide (Celexa Tab*) 20 mg PO DAILY [facility] Last Admin: 06/22/17 08:52 Dose: 20 mg Docusate Sodium (Colace Cap*) 100 mg PO BID PRN PRN Reason: CONSTIPATION Last Admin: 06/22/17 14:02 Dose: 100 mg Heparin Sodium (Porcine) (Heparin Vial(*)) 5,000 units SUBCUT Q8HR [facility] Last Admin: 06/22/17 14:03 Dose: 5,000 units Potassium Chloride/Sodium Chloride (Ns 0.9% W/ 20 Meq Kcl 1000 Ml*) 1,000 mls @ 125 mls/hr IV PER RATE [facility] Last Admin: 06/22/17 14:53 Dose: 125 mls/hr Lactated Ringer's (Lactated Ringers 1000 Ml Bag*) 1,000 mls @ 1,000 mls/hr IV .BOLUS [facility] Last Admin: 06/20/17 16:51 Dose: 1,000 mls/hr Ketorolac Tromethamine (Toradol Inj*) 30 mg IV PUSH Q6H PRN PRN Reason: PAIN Last Admin: 06/22/17 17:03 Dose: 30 mg Morphine Sulfate (Morphine Inj (Syringe)*) 4 mg IV Q4H PRN PRN Reason: PAIN - MILD Last Admin: 06/22/17 13:58 Dose: 4 mg Ondansetron HCl (Zofran Inj*) 4 mg IV Q4H PRN PRN Reason: NAUSEA/VOMITING Last Admin: 06/22/17 13:56 Dose: 4 mg Senna (Senokot Tab*) 1 tab PO BID PRN PRN Reason: CONSTIPATION Last Admin: 06/22/17 14:02 Dose: 1 tab Vital Signs - 8 hr 06/22/17 06/22/17 06/22/17 11:32 13:58 14:57 Temperature 99.0 F Pulse Rate 92 Respiratory 18 16 16 Rate Blood Pressure 128/76 (mmHg) O2 Sat by Pulse 98 Oximetry 06/22/17 15:22 Temperature 98.5 F Pulse Rate 92 Respiratory 20 Rate Blood Pressure 102/54 (mmHg) O2 Sat by Pulse 96 Oximetry Oxygen Devices in Use Now: None Appearance: Patient is a 47yo Female who appears stated age and is sitting in the bed in [facility]. Eyes: No Scleral Icterus, PERRLA Ears/Nose/Mouth/Throat: NL Teeth, Lips, Gums, Clear Oropharnyx, Mucous Membranes Moist, - - Swelling around the angle of the mandible. Non-tender, spongy. Neck: NL Appearance and Movements; NL JVP, Trachea Midline Respiratory: Symmetrical Chest Expansion and Respiratory Effort, Clear to Auscultation Cardiovascular: NL Sounds; No Murmurs; No JVD, RRR, No Edema Abdominal: NL Sounds; No Tenderness; No Distention, No Hepatosplenomegaly Lymphatic: No Cervical Adenopathy Extremities: No Edema, No Clubbing, Cyanosis Skin: No Rash or Ulcers, No Nodules or Sclerosis Neurological: Alert and Oriented x 3, NL Sensation, NL Muscle Strength and Tone , - - CN II-XII intact. Result Diagrams: 06/22/17 05:28 06/22/17 05:28 Additional Lab and Data: Lab Results Assess/Plan/Problems-Billing Assessment: Patient is a 47yo female with a PMH significant for HTN, Depression, and psoas abscess who presents with abdominal pain, N/V and several episodes of diarrhea who is still in significant pain despite negative imaging. - Patient Problems (1) Transaminitis Current Visit: Yes Status: Acute Code(s): R74.0 - NONSPEC ELEV OF LEVELS OF TRANSAMNS & LACTIC ACID DEHYDRGNSE SNOMED Code(s): 548430102 Comment: Patient had signficantly elevated transaminases as well as bilirubin and alkaline phosphotase. Trending down except bilirubin. Appreciate GI input. No sign of stone on CT or US. MRCP unremarkable. Tests for autoimmune hepatitis Pending. Both indirect and direct elevated, direct more-so. LDH normal and haptoglobin low. No signs of cholangitis, no indication for antibiotics. Differential includes Viral Infection, Shock liver, Infiltrative liver process, or autoimmune hepatitis. Appreciate GI input. (2) Abdominal pain Current Visit: Yes Status: Acute Code(s): R10.9 - UNSPECIFIED ABDOMINAL PAIN SNOMED Code(s): 32423694 Comment: Abdominal pain persisting despite no signs of stone on US. Toradol and Morphine available PRN. Decreasing significantly. Patient now has tenesmus and small amounts of stool without blood. (3) Psoas abscess Current Visit: Yes Status: Acute Code(s): K68.12 - PSOAS MUSCLE ABSCESS SNOMED Code(s): 760410343 Comment: History of psoas abscess. No provoking factor at that time. This is not similar in presentation per patient. Consider workup for immunodeficiency states outpatient. (4) Hypertension Current Visit: Yes Status: Acute Code(s): I10 - ESSENTIAL (PRIMARY) HYPERTENSION SNOMED Code(s): 63255746 Comment: Blood Pressure normotensive and increasing. Hold HCTZ and continue fluids as patient has been dehydrated. (5) Depression Current Visit: Yes Status: Acute Code(s): F32.9 - MAJOR DEPRESSIVE DISORDER , SINGLE EPISODE, UNSPECIFIED SNOMED Code(s): 44459633 Comment: Continue citalopram. (6) Oliguria Current Visit: Yes Status: Acute Code(s): R34 - ANURIA AND OLIGURIA SNOMED Code(s): 86891759 Comment: Prerenal FeNa, patient was significantly dehydrated. Increasing UOP. Continue fluids. No signs of overload. (7) Parotid gland enlargement Current Visit: Yes Status: Acute Code(s): K11.1 - HYPERTROPHY OF SALIVARY GLAND SNOMED Code(s): 31322064 Comment: Patient states that her parotid glands are intermittently swollen but that this is the worst they have been. Patient does not complain of chronic dry mouth or dry eyes. Patient has documented immunity to mumps. Possibly Viral syndrome. US of glands ordered. Mumps IgM and IgG ordered. CMV and EBV IgG and IgM ordered as well. Patient has monocytosis but no tonsillar enlargement or exudates. (8) DVT prophylaxis Current Visit: Yes Status: Acute Code(s): QRK1497 - SNOMED Code(s): 812805545 Comment: Heparin SubQ. (9) Full code status Current Visit: Yes Status: Acute Code(s): Z78.9 - OTHER SPECIFIED HEALTH STATUS SNOMED Code(s): 467535915 Status and Disposition: Patient is admitted inpatient. Will discharge when medically able.
--- NOTE | 2017-06-22 20:55 | RAD ---
HISTORY: Neck swelling COMPARISONS: None TECHNIQUE: Multiple transverse and longitudinal ultrasound images were obtained of the parotid glands bilaterally using grayscale and color Doppler imaging. FINDINGS: The parotid glands are diffusely heterogeneous in echotexture and enlarged measuring 7.8 x 5.4 x 3.3 cm on the right and a 0.3 x 6 x 2.1 cm on the left. There is no sellar or ductal dilatation. There is no appreciable sialolithiasis. Small parotid cysts versus intraparotid lymph nodes are noted. IMPRESSION: THE PAROTID GLANDS APPEAR EDEMATOUS AND ENLARGED BILATERALLY, SUGGESTIVE OF PAROTITIS. THERE IS NO APPRECIABLE SIALOLITHIASIS OR SALIVARY DUCTAL DILATATION.
[2017-06-23] MEDS: Ondansetron INJ* 2 MG/ML VIAL IV PRN ×3 (03:20→21:34)
[2017-06-23] MEDS: Morphine INJ* 4 MG/ML 1 ML CARPUJECT IV PRN (03:20)
[2017-06-23] MEDS ORDERED: PROCHLORPERAZINE INJ 5 MG/ML 2 ML VIAL IV ONE (05:00)
[2017-06-23 06:07] LABS: ABS Basophils 0.1 10^3/ul (0-0.2); ABS Eosinophils 0.3 10^3/ul (0-0.6); ABS Lymphocytes 1.9 10^3/ul (1.0-4.8); ABS Monocytes 0.9 10^3/ul (0-0.8); ABS Neutrophils 3.5 10^3/ul (1.5-7.7); ABS Nucleated RBC 0 10^3/ul; Eosinophil % 4.1 % (0-6); Hematocrit 34 % (35-47); Hemoglobin 11.4 g/dl (12.0-16.0); Mean Corpuscular HGB Conc 33 g/dl (31-36); Mean Corpuscular Hemoglobin 29 pg (27-31); Mean Corpuscular Volume 86 fL (80-97); Mean Platelet Volume 8 um3 (7.4-10.4); Nucleated Red Blood Cells % 0.2; Platelet Count 141 10^3/ul (150-450); Red Blood Count 3.97 10^6/ul (4.0-5.4); Red Cell Distribution Width 18 % (10.5-15); White Blood Count 6.6 10^3/ul (3.5-10.8)
[2017-06-23 06:24] LABS: EGFR Non-African American 77.7 (>60)
[2017-06-23 06:27] LABS: INR 1.09 (0.77-1.02)
[2017-06-23] MEDS: Ketorolac INJ* 30 MG/ML 1 ML VIAL IV PUSH PRN ×2 (06:31→21:34)
[2017-06-23] MEDS: Heparin VIAL(*) 5000 UNITS/ML VIAL (FIVE THOUSAND) SUBCUT SCH ×3 (06:32→21:34)
[2017-06-23] MEDS: Citalopram TAB* 20 MG PO SCH (11:11)
--- NOTE | 2017-06-23 13:22 | PN ---
Subjective Date of Service: 06/23/17 Interval History: Patient complains of significant nausea and vomiting overnight including one episode of vomiting this morning which contained several small blood clots. Patient was given nausea medicine and hasn't had any vomiting since and was able to tolerate breakfast without incident. Patient denied any abdominal or flank pain at this time. Patient denies fevers, chills, chest pain, difficulty swallowing, headache, muscle aches, changes in vision, or other pain. Family History: Unchanged from Admission Social History: Unchanged from Admission Past Medical History: Unchanged from Admission Objective Active Medications: Al Hydrox/Mg Hydrox/Simethicone (Maalox Plus*) 30 ml PO Q6H PRN PRN Reason: INDIGESTION Bisacodyl (Dulcolax Supp*) 10 mg [place] DAILY PRN PRN Reason: CONSTIPATION Last Admin: 06/22/17 14:55 Dose: 10 mg Citalopram Hydrobromide (Celexa Tab*) 20 mg PO DAILY [facility] Last Admin: 06/23/17 11:11 Dose: 20 mg Docusate Sodium (Colace Cap*) 100 mg PO BID PRN PRN Reason: CONSTIPATION Last Admin: 06/22/17 14:02 Dose: 100 mg Heparin Sodium (Porcine) (Heparin Vial(*)) 5,000 units SUBCUT Q8HR [facility] Last Admin: 06/23/17 06:32 Dose: 5,000 units Ketorolac Tromethamine (Toradol Inj*) 30 mg IV PUSH Q6H PRN PRN Reason: PAIN Last Admin: 06/23/17 06:31 Dose: 30 mg Morphine Sulfate (Morphine Inj (Syringe)*) 4 mg IV Q4H PRN PRN Reason: PAIN - MILD Last Admin: 06/23/17 03:20 Dose: 4 mg Ondansetron HCl (Zofran Inj*) 4 mg IV Q4H PRN PRN Reason: NAUSEA/VOMITING Last Admin: 06/23/17 03:20 Dose: 4 mg Senna (Senokot Tab*) 1 tab PO BID PRN PRN Reason: CONSTIPATION Last Admin: 06/22/17 14:02 Dose: 1 tab Vital Signs - 8 hr 06/23/17 06/23/17 08:00 08:06 Temperature 98.0 F Pulse Rate 77 Respiratory 16 16 Rate Blood Pressure 114/65 (mmHg) O2 Sat by Pulse 95 Oximetry Oxygen Devices in Use Now: None Appearance: Patient is a 47yo female who appears stated age and is sitting in the bed in [place]. Eyes: No Scleral Icterus, PERRLA Ears/Nose/Mouth/Throat: NL Teeth, Lips, Gums, Mucous Membranes Moist, - - White speckling on uvula. No exudative tonsillitis. Neck: NL Appearance and Movements; NL JVP, Trachea Midline Respiratory: Symmetrical Chest Expansion and Respiratory Effort, Clear to Auscultation Cardiovascular: NL Sounds; No Murmurs; No JVD, RRR, No Edema Abdominal: NL Sounds; No Tenderness; No Distention, No Hepatosplenomegaly Lymphatic: No Cervical Adenopathy Extremities: No Edema, No Clubbing, Cyanosis Skin: No Rash or Ulcers, No Nodules or Sclerosis Neurological: Alert and Oriented x 3, NL Sensation, NL Muscle Strength and Tone Result Diagrams: 06/23/17 06:00 06/23/17 06:00 Additional Lab and Data: Lab Results Assess/Plan/Problems-Billing Assessment: Patient is a 47yo female with a PMH significant for HTN, Depression, and psoas abscess who presents with abdominal pain, N/V and several episodes of diarrhea whose pain in improving but has developed significant parotid gland swelling. - Patient Problems (1) Transaminitis Current Visit: Yes Status: Acute Code(s): R74.0 - NONSPEC ELEV OF LEVELS OF TRANSAMNS & LACTIC ACID DEHYDRGNSE SNOMED Code(s): 429440157 Comment: Patient had signficantly elevated transaminases as well as bilirubin and alkaline phosphotase. Trending down. Appreciate GI input. No sign of stone on CT or US. MRCP unremarkable. Tests for autoimmune hepatitis Pending. Both indirect and direct elevated, direct more-so. LDH normal and haptoglobin low. No signs of cholangitis, no indication for antibiotics. Differential includes Viral Infection, Shock liver, Infiltrative liver process, or autoimmune hepatitis. (2) Abdominal pain Current Visit: Yes Status: Acute Code(s): R10.9 - UNSPECIFIED ABDOMINAL PAIN SNOMED Code(s): 07882005 Comment: Abdominal pain persisting despite no signs of stone on US. Toradol and Morphine available PRN. Decreasing significantly. Patient now has tenesmus and small amounts of stool without blood. (3) Vomiting Current Visit: Yes Status: Acute Code(s): R11.10 - VOMITING, UNSPECIFIED SNOMED Code(s): 123288339 Comment: Patient has had significant vomiting particularly overnight. Patient had one episode of emesis this morning with small blood clots in it. Occured after significant vomiting. Small amount of blood. Only small drop on hemoglobin. Appreciate Gi input. Likely Jeannette-Carrasco tear, no need for EGD at this time. Will monitor hemoglobin. (4) Psoas abscess Current Visit: Yes Status: Acute Code(s): K68.12 - PSOAS MUSCLE ABSCESS SNOMED Code(s): 097586634 Comment: History of psoas abscess. No provoking factor at that time. This is not similar in presentation per patient. Consider workup for immunodeficiency states outpatient. (5) Hypertension Current Visit: Yes Status: Acute Code(s): I10 - ESSENTIAL (PRIMARY) HYPERTENSION SNOMED Code(s): 25484181 Comment: Blood Pressure normotensive and increasing. Hold HCTZ and continue fluids as patient has been dehydrated. (6) Depression Current Visit: Yes Status: Acute Code(s): F32.9 - MAJOR DEPRESSIVE DISORDER , SINGLE EPISODE, UNSPECIFIED SNOMED Code(s): 58941311 Comment: Continue citalopram. (7) Oliguria Current Visit: Yes Status: Acute Code(s): R34 - ANURIA AND OLIGURIA SNOMED Code(s): 58607155 Comment: Resolved with fluids. (8) Parotid gland enlargement Current Visit: Yes Status: Acute Code(s): K11.1 - HYPERTROPHY OF SALIVARY GLAND SNOMED Code(s): 40943508 Comment: Patient states that her parotid glands are intermittently swollen but that this is the worst they have been. Patient does not complain of chronic dry mouth or dry eyes. Patient has documented immunity to mumps. Possibly Viral syndrome. US of glands ordered. Mumps IgM and IgG ordered. CMV and EBV IgG and IgM ordered as well. Patient has monocytosis but no tonsillar enlargement or exudates. (9) DVT prophylaxis Current Visit: Yes Status: Acute Code(s): LMH1293 - SNOMED Code(s): 862560067 Comment: Heparin SubQ. (10) Full code status Current Visit: Yes Status: Acute Code(s): Z78.9 - OTHER SPECIFIED HEALTH STATUS SNOMED Code(s): 536486558 Status and Disposition: Patient is admitted inpatient. Will discharge when medically able.
[2017-06-24] MEDS: Ondansetron INJ* 2 MG/ML VIAL IV PRN ×2 (01:36→08:10)
[2017-06-24] MEDS: Ketorolac INJ* 30 MG/ML 1 ML VIAL IV PUSH PRN (03:35)
[2017-06-24] MEDS ORDERED: Calcium Carbonate CHEW TAB* 500 MG (TUMS) PO PRN (05:21)
[2017-06-24] MEDS: Heparin VIAL(*) 5000 UNITS/ML VIAL (FIVE THOUSAND) SUBCUT SCH ×3 (05:36→22:37)
[2017-06-24 07:03] LABS: ABS Basophils 0.1 10^3/ul (0-0.2); ABS Eosinophils 0.3 10^3/ul (0-0.6); ABS Lymphocytes 3.2 10^3/ul (1.0-4.8); ABS Monocytes 1.3 10^3/ul (0-0.8); ABS Neutrophils 6.1 10^3/ul (1.5-7.7); ABS Nucleated RBC 0 10^3/ul; Eosinophil % 2.7 % (0-6); Hematocrit 35 % (35-47); Hemoglobin 11.8 g/dl (12.0-16.0); Lymphocyte % 28.8 % (25-47); Mean Corpuscular HGB Conc 34 g/dl (31-36); Mean Corpuscular Hemoglobin 29 pg (27-31); Mean Corpuscular Volume 86 fL (80-97); Mean Platelet Volume 8 um3 (7.4-10.4); Nucleated Red Blood Cells % 0.2; Platelet Count 147 10^3/ul (150-450); Red Blood Count 4.08 10^6/ul (4.0-5.4); Red Cell Distribution Width 17 % (10.5-15); White Blood Count 10.9 10^3/ul (3.5-10.8)
[2017-06-24 07:25] LABS: EGFR Non-African American 71.4 (>60)
[2017-06-24] MEDS: Citalopram TAB* 20 MG PO SCH (08:14)
[2017-06-24] MEDS: Omeprazole CAP* 20 MG PO SCH (14:23)
[2017-06-24] MEDS: Ondansetron ODT TAB* 4 MG SL PRN (14:26)
--- NOTE | 2017-06-24 17:43 | PN ---
Subjective Date of Service: 06/24/17 Interval History: Patient had significant nausea and vomiting overnight again. No hematemesis. Patient also has significant epigastric pain radiating up to the back of her throat. Patient denies a history of GERD. Unresponsive to TUMS. Responsive to prilosec. Able to transition to oral medications. Today. Able to tolerate more food later in the day after nausea subsided. Patient denies F/C, CP, SOB, Diarrhea, constipation, dysuria, or other pain. Family History: Unchanged from Admission Social History: Unchanged from Admission Past Medical History: Unchanged from Admission Objective Active Medications: Al Hydrox/Mg Hydrox/Simethicone (Maalox Plus*) 30 ml PO Q6H PRN PRN Reason: INDIGESTION Last Admin: 06/23/17 16:16 Dose: 30 ml Bisacodyl (Dulcolax Supp*) 10 mg [place] DAILY PRN PRN Reason: CONSTIPATION Last Admin: 06/22/17 14:55 Dose: 10 mg Calcium Carbonate (Tums*) 500 mg PO Q4H PRN PRN Reason: HEARTBURN Last Admin: 06/24/17 09:52 Dose: 500 mg Citalopram Hydrobromide (Celexa Tab*) 20 mg PO DAILY [facility] Last Admin: 06/24/17 08:14 Dose: 20 mg Docusate Sodium (Colace Cap*) 100 mg PO BID PRN PRN Reason: CONSTIPATION Last Admin: 06/22/17 14:02 Dose: 100 mg Heparin Sodium (Porcine) (Heparin Vial(*)) 5,000 units SUBCUT Q8HR [facility] Last Admin: 06/24/17 14:23 Dose: 5,000 units Omeprazole (Prilosec Cap*) 20 mg PO 0600 [facility] Last Admin: 06/24/17 14:23 Dose: 20 mg Ondansetron HCl (Zofran Odt Tab*) 4 mg SL Q6H PRN PRN Reason: NAUSEA/VOMITING Last Admin: 06/24/17 14:26 Dose: 4 mg Oxycodone HCl (Roxycodone Tab*) 5 mg PO Q4H PRN PRN Reason: PAIN Senna (Senokot Tab*) 1 tab PO BID PRN PRN Reason: CONSTIPATION Last Admin: 06/22/17 14:02 Dose: 1 tab Vital Signs - 8 hr 06/24/17 06/24/17 11:38 15:15 Temperature 98.1 F 98.4 F Pulse Rate 79 74 Respiratory 16 17 Rate Blood Pressure 126/67 144/80 (mmHg) O2 Sat by Pulse 99 98 Oximetry Oxygen Devices in Use Now: None Appearance: Patient is a 47yo female who appears stated age, has significant parotid swelling, and is sitting in the bed in [place]. Eyes: No Scleral Icterus, PERRLA Ears/Nose/Mouth/Throat: NL Teeth, Lips, Gums, Clear Oropharnyx, Mucous Membranes Moist, - - Significant parotid swelling with warmth and no tenderness. Neck: NL Appearance and Movements; NL JVP, Trachea Midline Respiratory: Symmetrical Chest Expansion and Respiratory Effort, Clear to Auscultation Cardiovascular: NL Sounds; No Murmurs; No JVD, RRR, No Edema Abdominal: NL Sounds; No Tenderness; No Distention, No Hepatosplenomegaly Lymphatic: No Cervical Adenopathy Extremities: No Edema Skin: No Rash or Ulcers, No Nodules or Sclerosis Neurological: Alert and Oriented x 3, NL Sensation, NL Muscle Strength and Tone Result Diagrams: 06/24/17 06:55 06/24/17 06:55 Additional Lab and Data: Lab Results Assess/Plan/Problems-Billing Assessment: Patient is a 47yo female with a PMH significant for HTN, Depression, and psoas abscess who presents with abdominal pain, N/V and several episodes of diarrhea whose pain in improving but has developed significant parotid gland swelling. - Patient Problems (1) Transaminitis Current Visit: Yes Status: Acute Code(s): R74.0 - NONSPEC ELEV OF LEVELS OF TRANSAMNS & LACTIC ACID DEHYDRGNSE SNOMED Code(s): 009667463 Comment: Patient had signficantly elevated transaminases as well as bilirubin and alkaline phosphotase. Trending down. Appreciate GI input. No sign of stone on CT or US. MRCP unremarkable. Tests for autoimmune hepatitis Pending and negative for those that came back. Both indirect and direct elevated, direct more-so. LDH normal and haptoglobin low. No signs of cholangitis, no indication for antibiotics. Differential includes Viral Infection, Shock liver, Infiltrative liver process, or autoimmune hepatitis. (2) Abdominal pain Current Visit: Yes Status: Acute Code(s): R10.9 - UNSPECIFIED ABDOMINAL PAIN SNOMED Code(s): 44253317 Comment: Initial abdominal pain resolved. Now epigastric pain which is better with prilosec. (3) Vomiting Current Visit: Yes Status: Acute Code(s): R11.10 - VOMITING, UNSPECIFIED SNOMED Code(s): 367533874 Comment: Patient has had significant vomiting particularly overnight. Patient had one episode of emesis this morning with small blood clots in it. Occured after significant vomiting. Small amount of blood. Only small drop on hemoglobin. Appreciate Gi input. Likely Jeannette-Carrasco tear, no need for EGD at this time. Hemoglobin stable. (4) Psoas abscess Current Visit: Yes Status: Acute Code(s): K68.12 - PSOAS MUSCLE ABSCESS SNOMED Code(s): 726470955 Comment: History of psoas abscess. No provoking factor at that time. This is not similar in presentation per patient. Appreciate ID input. Will check IgM, IgG and IgA levels. (5) Hypertension Current Visit: Yes Status: Acute Code(s): I10 - ESSENTIAL (PRIMARY) HYPERTENSION SNOMED Code(s): 34315514 Comment: Blood Pressure normotensive and increasing. Hold HCTZ and continue fluids as patient has been dehydrated. (6) Depression Current Visit: Yes Status: Acute Code(s): F32.9 - MAJOR DEPRESSIVE DISORDER , SINGLE EPISODE, UNSPECIFIED SNOMED Code(s): 49858782 Comment: Continue citalopram. (7) Oliguria Current Visit: Yes Status: Acute Code(s): R34 - ANURIA AND OLIGURIA SNOMED Code(s): 99186665 Comment: Resolved with fluids. (8) Parotid gland enlargement Current Visit: Yes Status: Acute Code(s): K11.1 - HYPERTROPHY OF SALIVARY GLAND SNOMED Code(s): 37821610 Comment: Patient states that her parotid glands are intermittently swollen but that this is the worst they have been. Patient does not complain of chronic dry mouth or dry eyes. Patient has documented immunity to mumps. Possibly Viral syndrome. US of glands ordered showing enlargement and cysts. Mumps IgM and IgG ordered. CMV and EBV IgG and IgM ordered as well. Patient has monocytosis but no tonsillar enlargement or exudates. (9) DVT prophylaxis Current Visit: Yes Status: Acute Code(s): NZN8417 - SNOMED Code(s): 050106806 Comment: Heparin SubQ. (10) Full code status Current Visit: Yes Status: Acute Code(s): Z78.9 - OTHER SPECIFIED HEALTH STATUS SNOMED Code(s): 893657508 Status and Disposition: Patient is admitted inpatient. Will discharge when medically able.
[2017-06-24] MEDS: Docusate CAP* 100 MG PO PRN (22:36)
[2017-06-24] MEDS: Senna TAB PO PRN (22:36)
[2017-06-24] MEDS: oxyCODONE TAB* 5 MG TAB PO PRN (23:12)
[2017-06-24] MEDS: Magnesium Hydroxide LIQ* 30 ML UDC PO PRN (23:13)
[2017-06-25] MEDS: Ondansetron ODT TAB* 4 MG SL PRN ×2 (02:59→09:01)
[2017-06-25 05:25] LABS: ABS Basophils 0.1 10^3/ul (0-0.2); ABS Eosinophils 0.2 10^3/ul (0-0.6); ABS Lymphocytes 3.1 10^3/ul (1.0-4.8); ABS Monocytes 1.5 10^3/ul (0-0.8); ABS Neutrophils 6.3 10^3/ul (1.5-7.7); ABS Nucleated RBC 0 10^3/ul; Eosinophil % 2.1 % (0-6); Hematocrit 35 % (35-47); Hemoglobin 11.6 g/dl (12.0-16.0); Lymphocyte % 27.6 % (25-47); Mean Corpuscular HGB Conc 33 g/dl (31-36); Mean Corpuscular Hemoglobin 29 pg (27-31); Mean Corpuscular Volume 86 fL (80-97); Mean Platelet Volume 9 um3 (7.4-10.4); Nucleated Red Blood Cells % 0; Platelet Count 135 10^3/ul (150-450); Red Blood Count 4.05 10^6/ul (4.0-5.4); Red Cell Distribution Width 18 % (10.5-15); White Blood Count 11.3 10^3/ul (3.5-10.8)
[2017-06-25 05:36] LABS: EGFR Non-African American 65.2 (>60)
[2017-06-25] MEDS: Omeprazole CAP* 20 MG PO SCH (06:01)
[2017-06-25] MEDS: oxyCODONE TAB* 5 MG TAB PO PRN ×3 (06:02→22:21)
[2017-06-25] MEDS: Heparin VIAL(*) 5000 UNITS/ML VIAL (FIVE THOUSAND) SUBCUT SCH ×3 (06:02→22:22)
[2017-06-25] MEDS: Citalopram TAB* 20 MG PO SCH (09:00)
[2017-06-25] MEDS: Docusate CAP* 100 MG PO PRN (10:24)
[2017-06-25] MEDS: Magnesium Hydroxide LIQ* 30 ML UDC PO PRN (10:25)
--- NOTE | 2017-06-25 11:09 | PN ---
Subjective Date of Service: 06/25/17 Interval History: Patient seen and examined at bedside. She reports new onset STONE this morning; denies photophobia/phonophobia. Still endorses intermittent nausea, denies vomiting/diarrhea, abd pain. Denies fever/chills, CP, SOB. No previous history of headaches. Parotid swelling is about the same. She recently took oxycodone for STONE but states she's still waiting to see if it works. Family History: Unchanged from Admission Social History: Unchanged from Admission Past Medical History: Unchanged from Admission Objective Active Medications: Al Hydrox/Mg Hydrox/Simethicone (Maalox Plus*) 30 ml PO Q6H PRN PRN Reason: INDIGESTION Last Admin: 06/23/17 16:16 Dose: 30 ml Bisacodyl (Dulcolax Supp*) 10 mg RI DAILY PRN PRN Reason: CONSTIPATION Last Admin: 06/22/17 14:55 Dose: 10 mg Calcium Carbonate (Tums*) 500 mg PO Q4H PRN PRN Reason: HEARTBURN Last Admin: 06/24/17 09:52 Dose: 500 mg Citalopram Hydrobromide (Celexa Tab*) 20 mg PO DAILY [facility] Last Admin: 06/25/17 09:00 Dose: 20 mg Docusate Sodium (Colace Cap*) 100 mg PO BID PRN PRN Reason: CONSTIPATION Last Admin: 06/25/17 10:24 Dose: 100 mg Heparin Sodium (Porcine) (Heparin Vial(*)) 5,000 units SUBCUT Q8HR [facility] Last Admin: 06/25/17 06:02 Dose: 5,000 units Magnesium Hydroxide (Milk Of Magnesia Liq*) 30 ml PO Q4H PRN PRN Reason: CONSTIPATION Last Admin: 06/25/17 10:25 Dose: 30 ml Omeprazole (Prilosec Cap*) 20 mg PO 0600 [facility] Last Admin: 06/25/17 06:01 Dose: 20 mg Ondansetron HCl (Zofran Odt Tab*) 4 mg SL Q6H PRN PRN Reason: NAUSEA/VOMITING Last Admin: 06/25/17 09:01 Dose: 4 mg Oxycodone HCl (Roxycodone Tab*) 5 mg PO Q4H PRN PRN Reason: PAIN Last Admin: 01/30/18 10:24 Dose: 5 mg Senna (Senokot Tab*) 1 tab PO BID PRN PRN Reason: CONSTIPATION Last Admin: 06/24/17 22:36 Dose: 1 tab Vital Signs - 8 hr 06/25/17 06/25/17 06/25/17 04:38 06:02 07:44 Temperature 98.1 F 97.9 F Pulse Rate 88 81 Respiratory 16 16 17 Rate Blood Pressure 132/81 121/73 (mmHg) O2 Sat by Pulse 100 95 Oximetry 06/25/17 06/25/17 06/25/17 09:06 10:24 10:25 Temperature Pulse Rate Respiratory 16 16 16 Rate Blood Pressure (mmHg) O2 Sat by Pulse Oximetry Oxygen Devices in Use Now: None Appearance: Female patient, sitting on edge of bed, NAD Eyes: No Scleral Icterus, PERRLA Ears/Nose/Mouth/Throat: Clear Oropharnyx, Mucous Membranes Moist, - - bilateral parotid swelling Neck: NL Appearance and Movements; NL JVP Respiratory: Symmetrical Chest Expansion and Respiratory Effort, Clear to Auscultation Cardiovascular: NL Sounds; No Murmurs; No JVD, RRR Abdominal: NL Sounds; No Tenderness; No Distention, No Hepatosplenomegaly Extremities: No Edema, No Clubbing, Cyanosis Skin: No Rash or Ulcers Neurological: Alert and Oriented x 3, NL Muscle Strength and Tone Lines/Tubes/Other Access: Clean, Dry and Intact Peripheral IV Nutrition: Taking PO's Result Diagrams: 06/25/17 05:09 06/25/17 05:08 Additional Lab and Data: Lab Results Assess/Plan/Problems-Billing Assessment: Patient is a 47yo female with a PMH significant for HTN, Depression, and psoas abscess who presents with abdominal pain, N/V and several episodes of diarrhea whose pain in improving but has developed significant parotid gland swelling. - Patient Problems (1) Headache Code(s): R51 - HEADACHE Comment: No previous hx of headaches; not the worst headache of her life, no light or sound sensitivity. Denies temporal pain or jaw claudication. Will treat conservatively with medication at this time and monitor for resolution. May try one time dose of Fioricet. (2) Transaminitis Code(s): R74.0 - NONSPEC ELEV OF LEVELS OF TRANSAMNS & LACTIC ACID DEHYDRGNSE Comment: Patient had signficantly elevated transaminases, as well as bilirubin and alkaline phosphotase. Now trending down. Appreciate GI input. No sign of stone on CT or US. MRCP unremarkable. Tests for autoimmune hepatitis pending and negative for those that came back. Both indirect and direct elevated, direct more-so. LDH normal and haptoglobin low. No signs of cholangitis, no indication for antibiotics. Differential dx includes viral infection, shock liver, infiltrative liver process, or autoimmune hepatitis. (3) Parotid gland enlargement Code(s): K11.1 - HYPERTROPHY OF SALIVARY GLAND Comment: Patient states that her parotid glands are intermittently swollen but that this is the worst they have been. Patient does not complain of chronic dry mouth or dry eyes. Patient has documented immunity to mumps, consider viral syndrome? US of glands ordered showing enlargement and cysts. Mumps IgM and IgG ordered. CMV and EBV IgG and IgM ordered as well. Patient has monocytosis but no tonsillar enlargement or exudates. (4) Abdominal pain Code(s): R10.9 - UNSPECIFIED ABDOMINAL PAIN Comment: Initial abdominal pain resolved. Now epigastric pain, which is better with Prilosec. (5) Vomiting Code(s): R11.10 - VOMITING, UNSPECIFIED Comment: No vomiting overnight Appreciate Gi input. Previous vomiting with small blood clots, likely 2/2 Jeannette-Carrasco tear, no need for EGD at this time. Hemoglobin stable. (6) Psoas abscess Code(s): K68.12 - PSOAS MUSCLE ABSCESS Comment: History of psoas abscess. No provoking factor at that time. This is not similar in presentation per patient. Appreciate ID input. Will check IgM, IgG and IgA levels. (7) Hypertension Code(s): I10 - ESSENTIAL (PRIMARY) HYPERTENSION Comment: Normotensive Continue to hold HCTZ. (8) Depression Code(s): F32.9 - MAJOR DEPRESSIVE DISORDER, SINGLE EPISODE, UNSPECIFIED Comment: Continue citalopram. (9) Oliguria Code(s): R34 - ANURIA AND OLIGURIA Comment: Resolved with fluids. (10) DVT prophylaxis Comment: Heparin SubQ. (11) Full code status Code(s): Z78.9 - OTHER SPECIFIED HEALTH STATUS Status and Disposition: Patient is admitted inpatient. Will discharge when medically able.
[2017-06-25] MEDS ORDERED: Butalb/Acetamin/Caff TAB* 1 TAB PO ONE (11:32)
[2017-06-25] MEDS ORDERED: Ibuprofen TAB* 800 MG PO PRN (16:17)
[2017-06-26] MEDS: Heparin VIAL(*) 5000 UNITS/ML VIAL (FIVE THOUSAND) SUBCUT SCH (05:37)
[2017-06-26] MEDS: Omeprazole CAP* 20 MG PO SCH (05:37)
[2017-06-26] MEDS: oxyCODONE TAB* 5 MG TAB PO PRN ×2 (05:39→09:40)
[2017-06-26] MEDS: Ondansetron ODT TAB* 4 MG SL PRN (05:40)
[2017-06-26 07:06] LABS: ABS Basophils 0.2 10^3/ul (0-0.2); ABS Eosinophils 0.3 10^3/ul (0-0.6); ABS Monocytes 1.2 10^3/ul (0-0.8); ABS Neutrophils 5.7 10^3/ul (1.5-7.7); ABS Nucleated RBC 0 10^3/ul; Eosinophil % 2.8 % (0-6); Hematocrit 37 % (35-47); Hemoglobin 12.4 g/dl (12.0-16.0); Lymphocyte % 28.6 % (25-47); Mean Corpuscular HGB Conc 34 g/dl (31-36); Mean Corpuscular Hemoglobin 29 pg (27-31); Mean Corpuscular Volume 86 fL (80-97); Mean Platelet Volume 9 um3 (7.4-10.4); Nucleated Red Blood Cells % 0; Platelet Count 154 10^3/ul (150-450); Red Blood Count 4.28 10^6/ul (4.0-5.4); Red Cell Distribution Width 18 % (10.5-15); White Blood Count 10.3 10^3/ul (3.5-10.8)
[2017-06-26 07:23] LABS: EGFR Non-African American 68.6 (>60)
[2017-06-26 07:33] VITALS: BP 119/68
[2017-06-26] MEDS: Citalopram TAB* 20 MG PO SCH (08:11)
--- NOTE | 2017-06-26 10:00 | PN ---
Subjective Date of Service: 06/26/17 Family History: Unchanged from Admission Social History: Unchanged from Admission Past Medical History: Unchanged from Admission Objective Active Medications: Al Hydrox/Mg Hydrox/Simethicone (Maalox Plus*) 30 ml PO Q6H PRN PRN Reason: INDIGESTION Last Admin: 06/23/17 16:16 Dose: 30 ml Bisacodyl (Dulcolax Supp*) 10 mg CO DAILY PRN PRN Reason: CONSTIPATION Last Admin: 06/22/17 14:55 Dose: 10 mg Calcium Carbonate (Tums*) 500 mg PO Q4H PRN PRN Reason: HEARTBURN Last Admin: 06/24/17 09:52 Dose: 500 mg Citalopram Hydrobromide (Celexa Tab*) 20 mg PO DAILY [facility] Last Admin: 06/26/17 08:11 Dose: 20 mg Docusate Sodium (Colace Cap*) 100 mg PO BID PRN PRN Reason: CONSTIPATION Last Admin: 06/25/17 10:24 Dose: 100 mg Heparin Sodium (Porcine) (Heparin Vial(*)) 5,000 units SUBCUT Q8HR [facility] Last Admin: 06/26/17 05:37 Dose: 5,000 units Ibuprofen (Motrin Tab*) 800 mg PO Q8H PRN PRN Reason: PAIN Last Admin: 06/26/17 08:11 Dose: 800 mg Magnesium Hydroxide (Milk Of Magnesia Liq*) 30 ml PO Q4H PRN PRN Reason: CONSTIPATION Last Admin: 06/25/17 10:25 Dose: 30 ml Omeprazole (Prilosec Cap*) 20 mg PO 0600 [facility] Last Admin: 06/26/17 05:37 Dose: 20 mg Ondansetron HCl (Zofran Odt Tab*) 4 mg SL Q6H PRN PRN Reason: NAUSEA/VOMITING Last Admin: 06/26/17 05:40 Dose: 4 mg Oxycodone HCl (Roxycodone Tab*) 5 mg PO Q4H PRN PRN Reason: PAIN Last Admin: 06/26/17 09:40 Dose: 5 mg Senna (Senokot Tab*) 1 tab PO BID PRN PRN Reason: CONSTIPATION Last Admin: 06/24/17 22:36 Dose: 1 tab Vital Signs - 8 hr 06/26/17 06/26/17 06/26/17 03:08 05:39 07:18 Temperature 98.5 F 98.2 F Pulse Rate 70 74 Respiratory 16 20 16 Rate Blood Pressure 130/77 119/68 (mmHg) O2 Sat by Pulse 100 100 Oximetry 06/26/17 06/26/17 06/26/17 08:00 08:11 09:40 Temperature Pulse Rate Respiratory 18 18 18 Rate Blood Pressure (mmHg) O2 Sat by Pulse Oximetry Oxygen Devices in Use Now: None Result Diagrams: 06/26/17 06:27 06/26/17 06:27 Additional Lab and Data: Lab Results Assess/Plan/Problems-Billing Assessment: Patient is a 47yo female with a PMH significant for HTN, Depression, and psoas abscess who presents with abdominal pain, N/V and several episodes of diarrhea whose pain in improving but has developed significant parotid gland swelling. - Patient Problems (1) Headache Code(s): R51 - HEADACHE Comment: No previous hx of headaches; not the worst headache of her life, no light or sound sensitivity. Denies temporal pain or jaw claudication. Will treat conservatively with medication at this time and monitor for resolution. May try one time dose of Fioricet. (2) Transaminitis Code(s): R74.0 - NONSPEC ELEV OF LEVELS OF TRANSAMNS & LACTIC ACID DEHYDRGNSE Comment: Patient had signficantly elevated transaminases, as well as bilirubin and alkaline phosphotase. Now trending down. Appreciate GI input. No sign of stone on CT or US. MRCP unremarkable. Tests for autoimmune hepatitis pending and negative for those that came back. Both indirect and direct elevated, direct more-so. LDH normal and haptoglobin low. No signs of cholangitis, no indication for antibiotics. Differential dx includes viral infection, shock liver, infiltrative liver process, or autoimmune hepatitis. (3) Parotid gland enlargement Code(s): K11.1 - HYPERTROPHY OF SALIVARY GLAND Comment: Patient states that her parotid glands are intermittently swollen but that this is the worst they have been. Patient does not complain of chronic dry mouth or dry eyes. Patient has documented immunity to mumps, consider viral syndrome? US of glands ordered showing enlargement and cysts. Mumps IgM and IgG ordered. CMV and EBV IgG and IgM ordered as well. Patient has monocytosis but no tonsillar enlargement or exudates. (4) Abdominal pain Code(s): R10.9 - UNSPECIFIED ABDOMINAL PAIN Comment: Initial abdominal pain resolved. Now epigastric pain, which is better with Prilosec. (5) Vomiting Code(s): R11.10 - VOMITING, UNSPECIFIED Comment: No vomiting overnight Appreciate Gi input. Previous vomiting with small blood clots, likely 2/2 Jeannette-Carrasco tear, no need for EGD at this time. Hemoglobin stable. (6) Psoas abscess Code(s): K68.12 - PSOAS MUSCLE ABSCESS Comment: History of psoas abscess. No provoking factor at that time. This is not similar in presentation per patient. Appreciate ID input. Will check IgM, IgG and IgA levels. (7) Hypertension Code(s): I10 - ESSENTIAL (PRIMARY) HYPERTENSION Comment: Normotensive Continue to hold HCTZ. (8) Depression Code(s): F32.9 - MAJOR DEPRESSIVE DISORDER, SINGLE EPISODE, UNSPECIFIED Comment: Continue citalopram. (9) Oliguria Code(s): R34 - ANURIA AND OLIGURIA Comment: Resolved with fluids. (10) DVT prophylaxis Comment: Heparin SubQ. (11) Full code status Code(s): Z78.9 - OTHER SPECIFIED HEALTH STATUS Status and Disposition: Patient is admitted inpatient. Will discharge when medically able.
--- NOTE | 2017-06-26 18:24 | PN ---
Hospitalist Progress Note Date of Service: 06/26/17 Discharge Assessment: Vital Signs: Temp Pulse Resp BP Pulse Ox 98.2 F 74 18 119/68 100 06/26/17 07:18 06/26/17 07:18 06/26/17 09:40 06/26/17 07:18 06/26/17 07:18 General: Female, appears stated age, sitting up, NAD HEENT: PERRLA, oral mucosa moist, parotid gland swelling that is mildly improved Neck: Full ROM, no cervical adenopathy Cardiac: S1, S2, RRR, no murmurs appreciated Lungs: CTA Abd: Soft, nontender, nondistended, BSx4 Extremities: No edema Neuro: AOX3, grossly non-focal Please refer to discharge summary. Script for LFTs next week mailed to patient.
--- NOTE | 2017-06-27 15:52 | DS ---
CC: Barbara Gamble NP * DISCHARGE SUMMARY: DATE OF ADMISSION: 06/20/17 DATE OF DISCHARGE: 06/26/17 PROVIDER: Corry Banda NP ATTENDING PHYSICIAN: Dr. Ivana Soto * (as dictated by Corry Banda NP). CONSULTING PHYSICIAN: Dr. Michelle Bryant, Gastroenterology. PRIMARY CARE PROVIDER: Barbara Gamble NP PRIMARY DISCHARGE DIAGNOSES: 1. Transaminitis, improving. 2. Parotid gland swelling. 3. Nausea and vomiting. SECONDARY DISCHARGE DIAGNOSES: 1. Hypertension. 2. Depression. MEDICATIONS AT DISCHARGE: 1. Meclizine 25 mg t.i.d. p.r.n. 2. Oxycodone 5 mg q.6 hours p.r.n. maximum daily dose 4. The patient was checked against I-STOP before prescribing this medication. 3. Ondansetron ODT 4 mg sublingual q.6 hours p.r.n. 4. Omeprazole 20 mg q.a.m. 5. Citalopram 20 mg daily. HOSPITAL COURSE AND STAY: For full detail please refer to the full medical record as well as H and P provided by Dr. Roach on 06/20/17. In summary, this is a 47- year-old female, who presented with right-sided abdominal pain with nausea and vomiting. She was noted to have elevated LFTs and was admitted for observation. She was seen by GI and underwent abdominal and bladder ultrasound as well as MRCP. Etiology of the elevated LFTs is still unclear at this time, as she is not on any medications that cause elevations. Her levels have been downward trending and is thought to be may be secondary to viral etiology. In the middle of her admission, the patient has also developed bilateral parotid gland swelling that is nonpainful, nontender without fever. So far, her workup has been negative for hepatitis, HIV, , mono, and mumps. The patient has been recommended to follow up with PCP for continued monitoring of LFTs and we discussed that she may need liver biopsy as an outpatient if testing is negative, if she continues to have elevated liver function tests. She has been advised to avoid Tylenol as well as alcohol in order to prevent any further insults to her liver. In regards to her bilateral parotid swelling, it had showed improvement during her time here, again it is nonpainful without any accompanying leukocytosis or fever. The case was reviewed with Dr. Kidd of Infectious Disease, who recommended further tests to check still pending. No antibiotic or viral treatment is indicated at this time. The patient has been advised to follow up with her primary care provider for further management and treatment. Prior to discharge, the patient reported improvement in her symptoms of headache , nausea, vomiting, and abdominal pain. She has been on Prilosec for the epigastric pain, which has provided a good relief. She has also been utilizing Zofran, p.r.n. oxycodone for relief of her symptoms. I did attempt to make followup appointments for the patient with Dr. Kidd and her primary care provider. However, her saving account is currently locked secondary to outstanding financial obligations. This was reviewed verbally with the patient, who verbalized understanding and she will call to take care of the situation. She was advised to return to the urgent care ER after further complications or concerns in the interim period until she is able to get in with her PCP. OUTPATIENT FOLLOWUP NEEDS: The patient will need to follow LFTs next week. A script has been given to the patient for this. She is to follow up with her PCP and Dr. Kidd within next 2 weeks. DIET: May resume previous diet. The patient is recommended to start bland diet and advance as tolerated. ACTIVITY: As tolerated. CONDITION: Improved, stable. DISPOSITION: To home. TIME SPENT: Time spent on this discharge was approximately 45 minutes. Again, this is only a brief summary of very complex and complicated course of hospital stay. If you have any further questions or need further assistance, please feel free to contact me at [phone]. CORRY BANDA, RAFAL [id number]/[facility] #: [id number] EULALIA
== END 2017-06-26 12:00 | disposition home or self-care (01) | DRG 861 ==
LOC: ED 00:14 → SSU 03:49 → OBSVTOIN 06-21 15:37 → MED 06-25 12:17
PROVIDERS: ADMIT Pediatrics; ATTEND Internal Medicine
DX: R74.0 Nonspecific elevation of levels of transaminase and lactic acid dehydrogenase [LDH] (principal); K22.6 Gastro-esophageal laceration-hemorrhage syndrome; R34 Anuria and oliguria; N17.9 Acute kidney failure, unspecified; I10 Essential (primary) hypertension; F32.9 Major depressive disorder, single episode, unspecified; F17.210 Nicotine dependence, cigarettes, uncomplicated; R51 Headache; K11.1 Hypertrophy of salivary gland; D64.9 Anemia, unspecified; K59.00 Constipation, unspecified; R10.11 Right upper quadrant pain; Z88.8 Allergy status to other drugs, medicaments and biological substances; Z79.899 Other long term (current) drug therapy
CPT/HCPCS: 36415; 74019; 74176; 74181; 76376; 76536; 76705; 76770; 80053; 80074; 81003; 82103; 82104; 82140; 82247; 82248; 82390; 82550; 82570; 82728; 82784; 82977; 83010; 83540; 83550; 83605; 83615; 83690; 83735; 84300; 84702; 85025; 85610; 85652; 85730; 86038; 86140; 86235; 86255; 86256; 86308; 86644; 86645; 86664; 86665; 86703; 86735; 86777; 86778; 86803; 87040; 93975; A9270-GY; G0378; J0780; J1644; J1885; J2270; J2405; J3475

== ENCOUNTER 2018-09-24 16:22 | Emergency (ER) | payer BC ==
[2018-09-24 16:47] VITALS: BP 131/85
--- NOTE | 2018-09-24 18:31 | UC ---
Skin Complaint HPI - HPI Summary HPI Summary: 48-year-old female presents with complaints of right lower leg redness, swelling , and tenderness that is progressively spread since yesterday. No known injury. States she took ibuprofen 800 mg approximately 4 hours ago with some improvement in symptoms. Denies fever, chills, chest pain, shortness of breath , calf pain or tenderness. - History of Current Complaint Chief Complaint: UCLowerExtremity Time Seen by Provider: 09/24/18 18:15 Stated Complaint: LEG PAIN AND SWELLING Hx Obtained From: Patient Pain Intensity: 8 - Allergy/Home Medications Allergies/Adverse Reactions: Allergies Allergy/AdvReac Type Severity Reaction Status Date / Time gabapentin Allergy Hives Verified 09/24/18 16:48 Home Medications: Home Medications Zolpidem TAB* [Ambien*] 5 mg PO BEDTIME 09/24/18 [History Confirmed 09/24/18] hydrOXYzine HCl [Hydroxyzine HCl] 10 mg PO BEDTIME 09/24/18 [History Confirmed 09/24/18] hydroCHLOROthiazide [Hydrochlorothiazide] 12.5 mg PO DAILY 09/24/18 [History Confirmed 09/24/18] PMH/Surg Hx/FS Hx/Imm Hx Previously Healthy: Yes Cardiovascular History: Hypertension GI/ History: Gastroesophageal Reflux Psychological History: Depression - Surgical History Surgical History: Yes Surgery Procedure, Year, and Place: NECK SURGERY 2002. [facility] I&D 2012, [facility] - Family History Known Family History: Positive: Non-Contributory Negative: Diabetes - Social History Occupation: Employed Full-time Lives: Alone Alcohol Use: Occasionally Substance Use Type: None Smoking Status (MU): Current Some Day Smoker Type: Cigarettes Amount Used/How Often: 1 pack/10 days - Immunization History Most Recent Influenza Vaccination: 2017 Most Recent Tetanus Shot: over 10 yrs Most Recent Pneumonia Vaccination: never Review of Systems All Other Systems Reviewed And Are Negative: Yes Constitutional: Negative: Fever, Chills Skin: Positive: Other - See HPI Respiratory: Negative: Shortness Of Breath, Cough Cardiovascular: Negative: Palpitations, Chest Pain Gastrointestinal: Positive: Negative Genitourinary: Positive: Negative Musculoskeletal: Negative: Calf Tenderness Neurological: Positive: Negative Is Patient Immunocompromised?: No Physical Exam - Summary Physical Exam Summary: GENERAL APPEARANCE: Well developed, well nourished, alert and cooperative, and appears to be in no acute distress. CARDIAC: Normal S1 and S2. No S3, S4 or murmurs. Rhythm is regular. There is no peripheral edema, cyanosis or pallor. Extremities are warm and well perfused. Capillary refill is less than 2 seconds. Peripheral pulses intact. LUNGS: Clear to auscultation without rales, rhonchi, wheezing or diminished breath sounds. ABDOMEN: Positive bowel sounds. Soft, nondistended, nontender. No guarding or rebound. No masses or hepatosplenomegally. MUSKULOSKELETAL: ROM intact to all extremities. No joint erythema or tenderness. Normal muscular development. EXTREMITIES: Area of erythema, mild edema, tenderness, and increased warmth to the anterior aspect of her right distal lower leg. No obvious wounds or lesions. Calf supple and nontender. SKIN: Skin normal color, texture and turgor. See above. Triage Information Reviewed: Yes Vital Signs: Initial Vital Signs Temp 98.8 F 09/24/18 16:42 Pulse 82 09/24/18 16:42 Resp 20 09/24/18 16:42 BP 131/85 09/24/18 16:42 Pulse Ox 100 09/24/18 16:42 Vital Signs Reviewed: Yes Course/Dx - Course Course Of Treatment: 48-year-old female presents with complaints of right lower leg redness, swelling , and tenderness that is progressively spread since yesterday. No known injury. States she took ibuprofen 800 mg approximately 4 hours ago with some improvement in symptoms. Denies fever, chills, chest pain, shortness of breath , calf pain or tenderness. Afebrile. Vital signs stable. Exam revealed an area of erythema, mild edema, tenderness, and increased warmth to the anterior aspect of her right distal lower leg. No obvious wounds or lesions. Calf supple and nontender. Exam otherwise unremarkable. We'll treat her for cellulitis with cephalexin 500 mg 4 times a day 7 days. Recommending over-the- counter analgesics as needed for pain. She is to follow-up with her primary care provider if symptoms are not improving within 3 days. Anticipatory guidance and warning symptoms were reviewed with the patient. Verbalizes understanding and agrees with plan of care. - Differential Diagnoses - Skin Complaint Differential Diagnoses: Cellulitis, Local Allergic Reaction - Diagnoses Provider Diagnosis: Cellulitis of right lower leg Discharge - Sign-Out/Discharge Documenting (check all that apply): Patient Departure All imaging exams completed and their final reports reviewed: No Studies - Discharge Plan Condition: Stable Disposition: HOME Prescriptions: cephALEXin [Keflex] 500 mg PO QID #28 capsule Patient Education Materials: Cellulitis (ED) Referrals: Barbara Gamble NP [Primary Care Provider] - 3 Days (If no improvement in symptoms.) Additional Instructions: Your symptoms appear to be from an infection of the skin called cellulitis. We will start you on an antibiotic to treat the infection. Start cephalexin 500 mg 1 cap four times a day for 7 days. Use [id number] acetaminophen (Tylenol) or ibuprofen (Advil, Motrin) according to directions as needed for pain. Follow-up with your primary care provider in 3 days if symptoms are not improving. Seek immediate medical attention in the emergency room if you develop fever greater than 100.5 F, has severe pain that is not managed with pain medication, continue have increased redness or swelling of the leg, develop chest pain or shortness of breath, or any worsening of symptoms. - Billing Disposition and Condition Condition: STABLE Disposition: Home - Attestation Statements Provider Attestation: I was available for consult. Pt not seen by me.
== END 2018-09-24 18:39 | disposition home or self-care (01) ==
LOC: UCEAST 16:22
DX: L03.115 Cellulitis of right lower limb (principal); I10 Essential (primary) hypertension; K21.9 Gastro-esophageal reflux disease without esophagitis; F32.9 Major depressive disorder, single episode, unspecified; Z88.8 Allergy status to other drugs, medicaments and biological substances; Z72.0 Tobacco use
CPT/HCPCS: 99212; G0463

== ENCOUNTER 2018-09-26 09:43 | Emergency (ER) | payer BC ==
[2018-09-26 09:54] VITALS: BP 112/76
--- NOTE | 2018-09-26 11:21 | UC ---
Lower Extremity/Ankle HPI - HPI Summary HPI Summary: 48 yr old female with no PMH, denies DM, recetn physical 1 year ago, negative, presents with R lower extremity edema. Patient was seen in 09/24, dx'd with cellulitis, started on Keflex. Patient states redness continues, but pain is worsening, pain with walking. No trauma, no open wounds or sores. - History of Current Complaint Chief Complaint: UCSkin Stated Complaint: LEG PAIN Time Seen by Provider: 09/26/18 10:33 Hx Obtained From: Patient Hx Last Menstrual Period: 09/19 ?: No Onset/Duration: Sudden Onset, Lasting Days Severity Initially: Moderate Severity Currently: Severe Pain Intensity: 10 Pain Scale Used: 0-10 Numeric Aggravating Factor(s): Standing, Ambulation Alleviating Factor(s): Rest Able to Bear Weight: Yes - Allergies/Home Medications Allergies/Adverse Reactions: Allergies Allergy/AdvReac Type Severity Reaction Status Date / Time gabapentin Allergy Hives Verified 09/26/18 09:54 PMH/Surg Hx/FS Hx/Imm Hx Previously Healthy: Yes - Surgical History Surgical History: Yes Surgery Procedure, Year, and Place: NECK SURGERY 2002. [facility] 2012, [facility] - Family History Known Family History: Positive: None, Unknown, Non-Contributory Negative: Cardiac Disease, Diabetes - Social History Alcohol Use: Occasionally Substance Use Type: None Smoking Status (MU): Current Some Day Smoker Type: Cigarettes Amount Used/How Often: 1 pack/10 days - Immunization History Most Recent Influenza Vaccination: 2017 Most Recent Tetanus Shot: over 10 yrs Most Recent Pneumonia Vaccination: never Review of Systems All Other Systems Reviewed And Are Negative: Yes Musculoskeletal: Positive: Arthralgia, Decreased ROM, Myalgia Is Patient Immunocompromised?: No Physical Exam Triage Information Reviewed: Yes Appearance: Well-Appearing, No Pain Distress, Well-Nourished Vital Signs: Initial Vital Signs Temp 98.2 F 09/26/18 09:49 Pulse 93 09/26/18 09:49 Resp 18 09/26/18 09:49 BP 112/76 09/26/18 09:49 Pulse Ox 100 09/26/18 09:49 Vital Signs Reviewed: Yes Eyes: Positive: Conjunctiva Clear Musculoskeletal Exam: Normal Musculoskeletal: Positive: Strength Intact, ROM Intact, Edema @ - anterior distal dangelo, ~ 6cm x 4cm area extending to mid-dangelo Neurological Exam: Normal Neurological: Positive: Alert, Muscle Tone Normal Psychological Exam: Normal Skin: Positive: Other - mild erythema over anterior distal dangelo. + 1 pitting edema. no drianage, pen wounds, or sores noted. + TTP. Lower Extremity Course/Dx - Course Course Of Treatment: radiograph - neg for fx, osteomyelitis. 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 - Differential Dx/Diagnosis Differential Diagnosis/HQI/PQRI: Cellulitis, Contusion, Phlebitis Provider Diagnosis: Cellulitis Discharge - Sign-Out/Discharge Documenting (check all that apply): Patient Departure All imaging exams completed and their final reports reviewed: Yes - Discharge Plan Condition: Fair Disposition: HOME Prescriptions: Clindamycin HCl 300 mg PO Q6HR #40 capsule Patient Education Materials: Clindamycin (By mouth), MRSA (Methicillin- Resistant Staphylococcus Aureus) (ED), Cellulitis (ED) Forms: *Work Release Referrals: Barbara Gamble NP [Primary Care Provider] - Additional Instructions: - Follow up with orthopedics or your primary doctor within 3-5 days if no improvement - GO to ER with increas pain, decreased walking, fever, chills, increased swelling or spread - Increase fluid intake, take antibiotics with food - Billing Disposition and Condition Condition: FAIR Disposition: Home
== END 2018-09-26 11:40 | disposition home or self-care (01) ==
LOC: UCEAST 09:43
DX: L03.115 Cellulitis of right lower limb (principal); R60.0 Localized edema; Z88.8 Allergy status to other drugs, medicaments and biological substances; Z72.0 Tobacco use
CPT/HCPCS: 99212; G0463

== ENCOUNTER 2019-04-14 09:11 | Emergency (ER) | payer BC ==
[2019-04-14] MEDS ORDERED: Ondansetron ODT TAB* 4 MG SL ONE (09:43)
--- NOTE | 2019-04-14 09:44 | UC ---
Throat Pain/Nasal Mann HPI - HPI Summary HPI Summary: 48 yo female presents with URI symptoms. She tells me that over the last 4-5 days she has had sinus pain/pressure/congestion, intermittent b/l ear pain, sore throat, and intermittently productive cough. She has been taking tylenol for her symptoms with little relief. Over the last 24 hours she has had body aches, felt nauseous, and this morning vomited x1 - prompting her visit to the . She has felt feverish, but has not taken her temperature. Denies SOB, chest pain, abdominal pain, dizziness, vision changes, numbness, tingling, dysuria. - History of Current Complaint Chief Complaint: UCGeneralIllness Stated Complaint: vomiTING, AND FEVER Time Seen by Provider: 04/14/19 09:41 Hx Obtained From: Patient Hx Last Menstrual Period: 03/25/19 Onset/Duration: Gradual Onset Severity: Mild Pain Intensity: 1 Pain Scale Used: 0-10 Numeric - Allergies/Home Medications Allergies/Adverse Reactions: Allergies Allergy/AdvReac Type Severity Reaction Status Date / Time No Known Allergies Allergy Verified 04/14/19 09:22 Home Medications: Home Medications Acetaminophen [Acetaminophen Extra Strength] 1,000 mg PO ONCE 04/14/19 [History Confirmed 04/14/19] Escitalopram * [Lexapro *] 20 mg PO DAILY 04/14/19 [History Confirmed 04/14/19] Hydrochlorothiazide TAB* [Hydrodiuril TAB*] 25 mg PO DAILY 04/14/19 [History Confirmed 04/14/19] PMH/Surg Hx/FS Hx/Imm Hx Cardiovascular History: Hypertension Psychological History: Anxiety, Depression - Surgical History Surgical History: Yes Surgery Procedure, Year, and Place: cervical repair 20 years ago, states - Family History Known Family History: Positive: Hypertension - Social History Lives: With Family Alcohol Use: Rare Substance Use Type: None Smoking Status (MU): Light Every Day Tobacco Smoker Amount Used/How Often: a few cigs a day Household Exposure Type: Cigarettes Review of Systems All Other Systems Reviewed And Are Negative: No Constitutional: Positive: Fever, Fatigue, Other - Body aches Skin: Positive: Negative Eyes: Positive: Negative ENT: Positive: Sore Throat, Ear Ache, Nasal Discharge, Sinus Congestion, Sinus Pain/Tenderness Respiratory: Positive: Cough Cardiovascular: Positive: Negative Gastrointestinal: Positive: Vomiting, Nausea Genitourinary: Positive: Negative Neurological: Positive: Negative Psychological: Positive: Negative Physical Exam - Summary Physical Exam Summary: GENERAL: NAD. WDWN. No pain distress. SKIN: No rashes, sores, lesions, or open wounds. HEENT: Head: AT/NC Eyes: EOM intact. Conjunctiva clear without inflammation or discharge. Ears: Hearing grossly normal. TMs intact, no bulging, erythema, or edema. Nose: Nasal mucosa pink and moist with mild yellow rhinorrhea. TTP maxillary and frontal sinus. Throat: Posterior oropharynx without exudates, erythema, or tonsillar enlargement. Uvula midline. NECK: Supple. Nontender. Shotty b/l anterior cervical LAD CHEST: Mild wheezing throughout. No accessory muscle use. Breathing comfortably and in no distress. CV: RRR. Pulses intact. Cap refill <2seconds ABDOMEN: Soft. NTTP. Bowel sounds present MSK: FROM in B/L UEs and LEs with symmetric strength. NEURO: A&Ox3. 3 word recall, remote, recent memory, ability to follow 2-step directions, and attention intact. CN: II: Peripheral burgess intact. Vision normal. III, IV, : EOMI. No nystagmus. PERRLA. V: Sensations intact and symmetric. Opens mouth and clenches teeth. VII: No facial asymmetry. Forehead wrinkles. Grins, shuts eyes, frowns, puffs cheeks. VIII: Hearing intact to finger rub. IX, X: Swallows and coughs. Uvula midline. XI: Shrugs shoulders. Turns head against resistance. XII: No tongue deviation [id number] are intact. Gait with normal base. Romberg: maintains balance, no pronator drift. Normal speech. No facial drooping. PSYCH: Age appropriate behavior. Triage Information Reviewed: Yes Vital Signs: Initial Vital Signs Temp 97.8 F 04/14/19 09:24 Pulse 78 04/14/19 09:24 Resp 18 04/14/19 09:24 BP 155/100 04/14/19 09:24 Pulse Ox 100 04/14/19 09:24 Laboratory Tests 04/14/19 04/14/19 04/14/19 09:51 09:53 10:14 POC Urine Color Shayy POC Urine Clarity Clear POC Urine pH 6.0 POC Ur Specif Amberg 1.025 POC Urine Protein Trace A POC Ur Glucose (UA) Negative POC Urine Ketones Negative POC Urine Blood Negative POC Urine Nitrite Negative POC Urine Bilirubin Negative POC Urine Urobilinogen 1.0 POC U Leukocyte Esteras Trace A Influenza A (Rapid) Negative Influenza B (Rapid) Negative Group A Strep Rapid Negative Vital Signs Reviewed: Yes Throat Pain/Nasal Course/Dx - Course Course Of Treatment: POC strep and flu negative. UA as above. Repeat BP 150/92. Pt was given zofran in the clinic for her nausea with good relief. She had no episodes of vomiting in the clinic and was able to tolerate po water and crackers. Will treat her for sinusitis and have her continue tylenol for her discomfort. - Differential Dx/Diagnosis Provider Diagnosis: Sinusitis, Nausea Discharge ED - Sign-Out/Discharge Documenting (check all that apply): Patient Departure All imaging exams completed and their final reports reviewed: No Studies - Discharge Plan Condition: Stable Disposition: HOME Prescriptions: Amoxicillin/Clavulanate TAB* [Augmentin TAB 875*] 875 mg PO BID #14 tab Patient Education Materials: Sinusitis (ED), Chronic Hypertension (ED) Forms: *Work Release Referrals: Barbara Gamble NP [Primary Care Provider] - Additional Instructions: If you develop a fever, shortness of breath, chest pain, new or worsening symptoms - please call your PCP or go to the ED immediately. Your blood pressure was high at todays visit. Please see your primary provider within 4 weeks for recheck and re-evaluation. - Billing Disposition and Condition Condition: STABLE Disposition: Home
[2019-04-14 10:05] LABS: Influenza A Molecular NEGATIVE (Negative); Influenza B Molecular NEGATIVE (Negative)
[2019-04-14 10:08] VITALS: BP 150/92
== END 2019-04-14 10:28 | disposition home or self-care (01) ==
LOC: MERGE 09:11 → UCEAST 09:11
DX: J32.9 Chronic sinusitis, unspecified (principal); I10 Essential (primary) hypertension; F41.9 Anxiety disorder, unspecified; F32.9 Major depressive disorder, single episode, unspecified; R50.9 Fever, unspecified; R52 Pain, unspecified; R11.2 Nausea with vomiting, unspecified; J02.9 Acute pharyngitis, unspecified; F17.210 Nicotine dependence, cigarettes, uncomplicated; Z79.899 Other long term (current) drug therapy
CPT/HCPCS: 81003; 87086; 87651; 99202; A9270-GY; G0463